=== PATIENT | female | born 2000 | race Caucasian/White ===

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

== ENCOUNTER 2020-12-09 15:12 | Emergency (ER) | payer OTHER, SELFPAY ==
--- NOTE | 2020-12-09 15:15 | ED.URI ---
HPI - URI/Sore Throat General Chief Complaint: Upper Respiratory Infection Stated Complaint: Sore Throat/Cough Time Seen by Provider: 12/09/20 15:16 Source: patient and RN notes reviewed History of Present Illness HPI Narrative: Patient is a 20-year-old female who presents the urgent care with complaints of sore throat, cough, bilateral ear drainage. Patient states that symptoms started 2 days ago. Denies of any fever, nausea, vomiting. Denies of any known exposure to Covid or strep. Patient has been using cough drops, throat numbing spray, and Mucinex. Patient has had a Covid vaccine. No other acute complaints. No acute distress noted. Patient read the plan of care. Some parts of this dictation were generated by voice recognition software and may contain typographical and/or grammatical inaccuracies. Related Data Home Medications Medication Instructions Recorded Confirmed levothyroxine 50 mcg PO DAILY 11/29/19 11/29/19 Allergies Allergy/AdvReac Type Severity Reaction Status Date / Time No Known Allergies Allergy Verified 12/09/20 15:25 Review of Systems Review of Systems: CONSTITUTIONAL: Denies fever, chills, or sweats. EYES: Denies visual changes, redness, or discharge. ENT: Denies rhinorrhea, congestion. Reports of sore throat and bilateral ear drainage CARDIOVASCULAR: Denies chest pain, palpitations, or edema. RESPIRATORY: Reports a mild nonproductive cough without dyspnea GASTROINTESTINAL: Denies abdominal pain, nausea, vomiting, or diarrhea. GENITOURINARY: Denies dysuria or hematuria. SKIN: Denies rash or itching. MUSCULOSKELETAL: Denies back pain, joint pain, or myalgia. NEUROLOGIC: Denies headache, numbness, or weakness. All other systems reviewed are negative, except as documented in HPI. [facility] Past Medical History Medical History (Updated 12/09/20 @ 15:48 by ARUNA Turner) Anxiety Depression History of gastrectomy Hypothyroidism Surgical History Surgical History (Updated 08/09/19 @ 11:24 by ARUNA Cardenas) History of cholecystectomy History of gastric surgery History of tonsillectomy Family History Family History (Updated 08/09/19 @ 11:00 by ARUNA Cardenas) Father Alive and well Mother Alive and well Social History Social History (Updated 08/09/19 @ 11:00 by SALAZAR Cardenas Smoking status: Never smoker Second hand tobacco smoke exposure: No Alcohol intake: never Substance use: never Gender identity (if verbalized by the patient): Female Comments At the time of my signature, I reviewed and agree with the nursing past medical, surgical, social, and family history. There is no relevant family history pertinent to the patient complaint. Exam Narrative: GENERAL: This is a well-nourished, well-developed patient, in no apparent distress. HEAD: normocephalic, atraumatic. EYES: PERRL. Sclera clear/white. Vision is grossly intact. EARS: External ears normal, auditory canals clear and without drainage, TMs normal without perforation. Hearing grossly intact. NOSE: External nose normal with no obvious nasal discharge, nares without redness, clear rhinorrhea. THROAT: Mucous membranes moist, mild erythema noted posterior oropharynx with moderate postnasal drainage NECK: Neck supple, non-tender without lymphadenopathy CARDIOVASCULAR: Regular rate and rhythm without murmurs, gallops, or rubs. RESPIRATORY: Clear to auscultation. Breath sounds equal bilaterally. No wheezes, rales, or rhonchi. SKIN: warm, intact with no suspicious lesions or rash, good texture and turgor. NEURO: awake, alert, and oriented to person, place and time. There were no obvious focal neurologic abnormalities. EXTREMITIES: No clubbing, cyanosis, or edema. Course Vital Signs Vital signs: Vital Signs Temperature 98.4 F 12/09/20 15:20 Pulse Rate 83 12/09/20 15:20 Respiratory Rate 16 12/09/20 15:20 Blood Pressure 148/88 H 12/09/20 15:20 Pulse Oximetry 100
[2020-12-09 15:20] VITALS: BP 148/88; PULSE 83; RESP 16; TEMP 36.9; O2SAT 100
== END 2020-12-09 15:52 | disposition home or self-care (01) ==
PROVIDERS: Emergency Provider Nurse Practitioner Family; PCP Internal Medicine
DX: J02.9 Acute pharyngitis, unspecified (principal); E03.9 Hypothyroidism, unspecified
CPT/HCPCS: 87081; 87880; 99213; G0463

== ENCOUNTER 2021-09-13 12:03 | Emergency (ER) | payer OTHER, SELFPAY ==
[2021-09-13 12:13] VITALS: BP 123/74; PULSE 82; RESP 16; TEMP 36.8; O2SAT 100
--- NOTE | 2021-09-13 12:25 | ED.SKABFB ---
HPI - Skin/Abscess/Foreign Bdy General Chief complaint: Skin/Abscess/Foreign Body Stated complaint: rash all over Time Seen by Provider: 09/13/21 12:25 Related Data Home Medications Medication Instructions Recorded Confirmed levothyroxine 50 mcg tablet 50 mcg PO DAILY 11/29/19 09/13/21 bupropion HCl 150 mg tablet,12 hr 150 mg PO DAILY 08/21/21 09/13/21 sustained-release (Wellbutrin SR) levonorgestrel 20 mcg/24 hours (7 1 device intrauterine ONCE 08/21/21 09/13/21 yrs) 52 mg intrauterine device (Mirena) Allergies Allergy/AdvReac Type Severity Reaction Status Date / Time fluoxetine [From Prozac] Allergy Severe Hives Verified 09/13/21 12:26 Review of Systems Review of Systems: Patient presents with hives to her back and both arms. Patient denies any change in lifestyle. No new pets no new foods. Patient has not take anything [id number] for symptoms denies any new added stress in her life. Patient denies any shortness of breath no chest pain Constitutional: Comments: CONSTITUTIONAL: Denies fever, chills, or sweats. EYES: Denies visual changes, redness, or discharge. ENT: Denies rhinorrhea, congestion, sore throat, or otalgia. CARDIOVASCULAR: Denies chest pain, palpitations, or edema. RESPIRATORY: Denies cough or dyspnea. GASTROINTESTINAL: Denies abdominal pain, nausea, vomiting, or diarrhea. GENITOURINARY: Denies dysuria or hematuria. SKIN: Denies rash or itching. MUSCULOSKELETAL: Denies back pain, joint pain, or myalgia. NEUROLOGIC: Denies headache, numbness, or weakness. PSYCHIATRIC: Denies anxiety or depression. [facility] Past Medical History Medical History (Updated 09/13/21 @ 12:32 by ARUNA Christensen) Anxiety Depression Encounter for IUD insertion 05/2020 History of gastrectomy Hypothyroidism Surgical History Surgical History History of cholecystectomy History of gastric surgery History of tonsillectomy Family History Family History Father Alive and well Mother Alive and well Social History Social History (Updated 08/21/21 @ 14:16 by Rebekah Thomas MA) Smoking status: Never smoker Second hand tobacco smoke exposure: No Alcohol intake: never Substance use: never Gender identity (if verbalized by the patient): Female Sexual Orientation (if Verbalized by the Patient): Straight or Heterosexual Comments At time of signature, agree with nursing past medical, surgical, social and family history. There is no relevant family history pertinent to the presenting complaint Exam Narrative: GENERAL: Well-appearing, well-nourished, and in no acute distress. HEAD: Normocephalic, atraumatic. EYES: PERRLA and EOMI. ENT: Nares clear, no rhinorrhea or epistaxis. Mucous membranes moist. NECK: Supple. CHEST: Clear to auscultation. No respiratory distress. HEART: Regular rate and rhythm. No murmur heard. Normal peripheral pulses. ABDOMEN: Soft, nontender, nondistended, normal active bowel sounds. EXTREMITIES: Normal range of motion. No edema. SKIN: Warm, dry, no rash. Hives to both upper extremities and back NEURO: No focal deficits. Alert and oriented x3. [place] Coma Scale Eye Opening: Spontaneous 4 [place] Coma Scale Motor: Obeys Commands 6 [place] Coma Scale Verbal: Oriented 5 Damari Coma Scale Total 15 Course Course Level of Care: Express Care Visit Vital Signs Vital signs: Vital Signs Temperature 36.8 C 09/13/21 12:13 Pulse Rate 82 09/13/21 12:13 Respiratory Rate 16 09/13/21 12:13 Blood Pressure 123/74 09/13/21 12:13 Pulse Oximetry 100 09/13/21 12:13 Oxygen Delivery Room Air 09/13/21 12:13 Temperature 36.8 C 09/13/21 12:13 Pulse Rate 82 09/13/21 12:13 Respiratory Rate 16 09/13/21 12:13 Blood Pressure 123/74 09/13/21 12:13 Pulse Oximetry 100 09/13/21 12:13 Oxygen Delivery Room Air 09/13/21 12:13 [facility] - [facility]
== END 2021-09-13 12:36 | disposition home or self-care (01) ==
PROVIDERS: Emergency Provider Nurse Practitioner Family; PCP Physician Assistant
DX: L50.9 Urticaria, unspecified (principal); E03.9 Hypothyroidism, unspecified; F41.9 Anxiety disorder, unspecified; F32.A Depression, unspecified
CPT/HCPCS: 99213; G0463

== ENCOUNTER 2021-10-26 08:08 | Emergency (ER) | payer OTHER, SELFPAY ==
[2021-10-26 08:12] VITALS: BP 114/70; PULSE 81; RESP 16; TEMP 36.4; O2SAT 100
--- NOTE | 2021-10-26 08:22 | ED.URI ---
HPI - URI/Sore Throat General Chief Complaint: Upper Respiratory Infection Stated Complaint: sinus infection ears and throat Time Seen by Provider: 10/26/21 08:22 Source: patient, RN notes reviewed and old records reviewed Mode of arrival: ambulatory Limitations: no limitations History of Present Illness HPI Narrative: 21 year old female who presents to [facility] care with complaints of cough, sore throat, ear pain, nasal congestion and drainage and body aches for the past 3 days. Patient reports she has been taking [id number] allergy medicine and cold and flu medications and has also been using Flonase with no improvements in her symptoms. Patient reports she has taken a home COVID test yesterday which was negative, patient reports has had COVID vaccinations and booster and also had flu shot last season. patient reports that she has not had fevers, chills or sweats. MD elicited complaint: cough, sore throat, rhinorrhea and nasal congestion Onset (ago): day(s) (3) Treatments prior to arrival: cold medicine and other (flonase, allergy medications) Related Data Home Medications Medication Instructions Recorded Confirmed levothyroxine 50 mcg tablet 50 mcg PO DAILY 11/29/19 10/26/21 bupropion HCl 150 mg tablet,12 hr 150 mg PO DAILY 08/21/21 10/26/21 sustained-release (Wellbutrin SR) levonorgestrel 20 mcg/24 hours (7 1 device intrauterine ONCE 08/21/21 10/26/21 yrs) 52 mg intrauterine device (Mirena) Allergies Allergy/AdvReac Type Severity Reaction Status Date / Time fluoxetine [From Prozac] Allergy Severe Hives Verified 10/26/21 08:23 Review of Systems Review of Systems: CONSTITUTIONAL: Denies fever, chills, or sweats. EYES: Denies visual changes, redness, or discharge. ENT: Positive for rhinorrhea, congestion, sore throat, positive otalgia. CARDIOVASCULAR: Denies chest pain, palpitations, or edema. RESPIRATORY: positive cough denies dyspnea. GASTROINTESTINAL: Denies abdominal pain, nausea, vomiting, or diarrhea. GENITOURINARY: Denies dysuria or hematuria. SKIN: Denies rash or itching. MUSCULOSKELETAL: Denies back pain, joint pain, states some body aches NEUROLOGIC: Denies headache, numbness, or weakness. PSYCHIATRIC: positive for history of anxiety or depression. All systems reviewed & are unremarkable except as noted in HPI and below PMFSH Past Medical History Medical History Anxiety Depression Encounter for IUD insertion 05/2020 History of gastrectomy Hypothyroidism Surgical History Surgical History History of cholecystectomy History of gastric surgery History of tonsillectomy Family History Family History Father Alive and well Mother Alive and well Social History Social History Smoking status: Never smoker Second hand tobacco smoke exposure: No Alcohol intake: never Substance use: never Gender identity (if verbalized by the patient): Female Sexual Orientation (if Verbalized by the Patient): Straight or Heterosexual Comments At time of signature, agree with nursing past medical, surgical, social and family history. There is no relevant family history pertinent to the presenting complaint Exam Narrative: GENERAL: Well-appearing, well-nourished, and in no acute distress. HEAD: Normocephalic, atraumatic. EYES: PERRLA and EOMI. ENT: Nares red with clear rhinorrhea no epistaxis. Mucous membranes moist.TM's normal with good light reflex, throat red no lesions or exudates, tonsils absent NECK: Supple.no lymphadenopathy CHEST: Clear to auscultation. No respiratory distress.SAO2 100% on room air HEART: Regular rate and rhythm. No murmur heard. Normal peripheral pulses. ABDOMEN: Soft, nontender, nondistended, normal active bowel sounds. EXTREMITIES: Normal range of m
== END 2021-10-26 08:50 | disposition home or self-care (01) ==
PROVIDERS: Emergency Provider Registered Nurse; PCP Physician Assistant
DX: J06.9 Acute upper respiratory infection, unspecified (principal); J02.9 Acute pharyngitis, unspecified; E03.9 Hypothyroidism, unspecified; F41.9 Anxiety disorder, unspecified; F32.A Depression, unspecified; Z90.3 Acquired absence of stomach [part of]
CPT/HCPCS: 87081; 87880; 99213; G0463

== ENCOUNTER 2022-05-03 09:15 | Emergency (ER) | payer OTHER, SELFPAY ==
[2022-05-03 09:24] VITALS: BP 122/73; PULSE 87; RESP 20; TEMP 36.5; O2SAT 100
--- NOTE | 2022-05-03 10:19 | ED.GENADULT ---
HPI - General Adult General Chief complaint: Upper Respiratory Infection Stated complaint: throat/ears/congestion Source: patient Mode of arrival: ambulatory Limitations: no limitations History of Present Illness HPI narrative: Patient presents for evaluation of sore throat since yesterday. She also reports a burning sensation in her ears and cervical lymphadenopathy. Her friend recently tested positive for strep pharyngitis. They were sharing drinks within the past few days. She had a low-grade fever with T-max 100.2? F. No chills, nausea, vomiting, diarrhea, cough, shortness of breath. She tried taking some [id number] agents for her symptoms without considerable improvement thereafter. She does not smoke. History of tonsillectomy. Related Data Home Medications Medication Instructions Recorded Confirmed levothyroxine 50 mcg tablet 50 mcg PO DAILY 11/29/19 05/03/22 bupropion HCl 150 mg tablet,12 hr 150 mg PO DAILY 08/21/21 05/03/22 sustained-release (Wellbutrin SR) levonorgestrel 21 mcg/24 hours (8 1 device intrauterine ONCE 08/21/21 05/03/22 yrs) 52 mg intrauterine device (Mirena) Allergies Allergy/AdvReac Type Severity Reaction Status Date / Time fluoxetine [From Prozac] Allergy Severe Hives Verified 05/03/22 09:50 Review of Systems Review of Systems: CONSTITUTIONAL: Reports fever. Denies chills, or sweats. EYES: Denies visual changes, redness, or discharge. ENT: Reports sore throat, cervical lymphadenopathy and bilateral ear pain. Denies rhinorrhea and congestion CARDIOVASCULAR: Denies chest pain, palpitations, or edema. RESPIRATORY: Denies cough or dyspnea. GASTROINTESTINAL: Denies abdominal pain, nausea, vomiting, or diarrhea. GENITOURINARY: Denies dysuria or hematuria. SKIN: Denies rash or itching. MUSCULOSKELETAL: Denies back pain, joint pain, or myalgia. NEUROLOGIC: Denies headache, numbness, dizziness, or weakness. PSYCHIATRIC: Denies anxiety or depression. [facility]LY [facility] Past Medical History Medical History Anxiety Depression Encounter for IUD insertion 05/2020 History of gastrectomy Hypothyroidism Surgical History Surgical History History of cholecystectomy History of gastric surgery History of tonsillectomy Family History Family History Father Alive and well Mother Alive and well Social History Social History Smoking status: Never smoker Second hand tobacco smoke exposure: No Alcohol intake: never Substance use: never Living arrangements: with family Occupation/Education: occupation Gender identity (if verbalized by the patient): Female Sexual Orientation (if Verbalized by the Patient): Straight or Heterosexual Exam Narrative: GENERAL: Well-appearing, well-nourished, and in no acute distress. HEAD: Normocephalic, atraumatic. EYES: PERRLA and EOMI. ENT: Nares clear, no rhinorrhea or epistaxis. Mucous membranes moist. Posterior pharyngeal erythema without exudate. Uvula is midline. Bilateral TMs pearly michel nonbulging NECK: Supple. No adenopathy or masses. No carotid bruits or JVD CHEST: Clear to auscultation. No respiratory distress. No wheezes rales or rhonchi HEART: Regular rate and rhythm. No murmur heard. Normal peripheral pulses. ABDOMEN: Soft, nontender, nondistended, normal active bowel sounds. EXTREMITIES: Normal range of motion. No edema. SKIN: Warm, dry, no rash. NEURO: No focal deficits. Alert and oriented x3. PSYCH: Normal mood and affect. Course Course Emergency Course: This is a 22-year-old female who presented for evaluation of sore throat after recent strep exposure. Rapid strep negative. Will treat with amoxicillin based on recent exposure. Follow up with primary provider. Go to the ER for
== END 2022-05-03 10:24 | disposition home or self-care (01) ==
PROVIDERS: Emergency Provider Nurse Practitioner; PCP Physician Assistant
DX: J02.9 Acute pharyngitis, unspecified (principal); F41.9 Anxiety disorder, unspecified; F32.A Depression, unspecified; E03.9 Hypothyroidism, unspecified
CPT/HCPCS: 87081; 87880; 99213; G0463

== ENCOUNTER 2022-07-24 10:40 | Emergency (ER) | payer OTHER, SELFPAY ==
--- NOTE | 2022-07-24 10:54 | ED.URI ---
HPI - URI/Sore Throat General Chief Complaint: Upper Respiratory Infection Stated Complaint: cough, hard time breathing,sore throat Time Seen by Provider: 07/24/22 10:50 Source: patient Mode of arrival: ambulatory Limitations: no limitations History of Present Illness HPI Narrative: Letitia is a 22-year-old female patient presenting to the clinic today with complaints of cough, shortness of breath, and sore throat times 1 day. She reports she has had low-grade fever and productive cough at times with yellow phlegm. No known exposure to anyone with COVID, flu, or strep. Feels as though her lymph nodes are swollen and she is having discomfort and bilateral ears. MD elicited complaint: sore throat, nasal congestion and other (Shortness of breath) Related Data Home Medications Medication Instructions Recorded Confirmed levothyroxine 50 mcg tablet 50 mcg PO DAILY 11/29/19 07/24/22 bupropion HCl 150 mg tablet,12 hr 150 mg PO DAILY 08/21/21 07/24/22 sustained-release (Wellbutrin SR) Allergies Allergy/AdvReac Type Severity Reaction Status Date / Time fluoxetine [From Prozac] Allergy Severe Hives Verified 07/24/22 10:59 Review of Systems Review of Systems: Pertinent positives per HPI. Patient denies any fever, chills, rash, headache, visual changes, dizziness, chest pain, palpitations, nausea, vomiting, diarrhea, constipation, abdominal pain, or any urinary issues. FOR[facility]LY [facility] Past Medical History Medical History Anxiety Depression Encounter for IUD insertion 05/2020 History of gastrectomy Hypothyroidism Surgical History Surgical History History of cholecystectomy History of gastric surgery History of tonsillectomy Family History Family History Father Alive and well Mother Alive and well Social History Social History Smoking status: Never smoker Second hand tobacco smoke exposure: No Alcohol intake: never Substance use: never Living arrangements: with family Occupation/Education: occupation Gender identity (if verbalized by the patient): Female Sexual Orientation (if Verbalized by the Patient): Straight or Heterosexual Comments At the time of my signature, I reviewed and agree with the nursing past medical, surgical, social, and family history. There is no relevant family history pertinent to the patient complaint. Exam Narrative: General: Well-developed, obese, in no apparent distress Head: Normocephalic, atraumatic Eyes: Pupils equally round and reactive to light bilaterally, EOM intact, sclera and conjunctive clear, no discharge, lids normal Ears: TMs intact and congested, ear canals clear, no drainage, grossly hearing normal. Nose: Nares patent, clear nasal discharge, moderate inflammation, no sinus tenderness. Mouth: Oral pharynx red without lesions or masses, good dentition, MMM. Neck: Supple, trachea midline, mild enlargement of anterior cervical nodes, no thyroid masses or goiter palpable. Cardio: Regular rate and rhythm, s1 and s2 normal, no murmur appreciated. Resp: Clear to auscultation bilaterally, no rhonchi, rales, wheezing or rubs Course Course Emergency Course: Portions of this record may have been created with voice recognition software. Level of Care: Express Care Visit Vital Signs Vital signs: Vital signs reviewed MDM - URI/Sore Throat MDM Narrative Medical decision making narrative: At the time of visit patient is resting comfortably on exam table. COVID, influenza, and strep screen is negative in the clinic. We will send strep for culture. I suspect patient has URI/pharyngitis. Supportive measures were discussed with the patient she voiced understanding discharge instructions and agrees to treatment pl
[2022-07-24 10:56] VITALS: BP 151/84; PULSE 86; RESP 16; TEMP 37.1; O2SAT 100
== END 2022-07-24 11:43 | disposition home or self-care (01) ==
PROVIDERS: Emergency Provider Nurse Practitioner Family; PCP Physician Assistant
DX: J06.9 Acute upper respiratory infection, unspecified (principal); B34.9 Viral infection, unspecified; J02.9 Acute pharyngitis, unspecified; Z20.822 Contact with and (suspected) exposure to COVID-19; F41.9 Anxiety disorder, unspecified; F32.A Depression, unspecified; E03.9 Hypothyroidism, unspecified
CPT/HCPCS: 87081; 87426; 87804; 87880; 99213; C9803; G0463

== ENCOUNTER 2023-12-06 16:20 | Emergency (ER) | payer OTHER, SELFPAY ==
[2023-12-06 16:59] VITALS: BP 122/58; PULSE 78; RESP 16; TEMP 36.9; O2SAT 99
--- NOTE | 2023-12-06 17:46 | ED_ITS ---
HPI - URI/Sore Throat General Chief Complaint: Upper Respiratory Infection Stated Complaint: Congestion/Sore Throat/Shortness of Breath Time Seen by Provider: 12/06/23 17:30 Source: patient, RN notes reviewed and old records reviewed Mode of arrival: ambulatory Limitations: no limitations History of Present Illness HPI Narrative: 23 year old female who presents to [facility] care with complaints of cough, some shortness of breath states hurts to breath, burning sore throat and also some pressure to ears for the last 2 days. Patient reports that she has taken some cough medication and also some cold and flu medication without resolution in symptoms.She reports no known temperature or any body aches. MD elicited complaint: cough, sore throat and other (ear pressure) Onset (ago): day(s) (2) Severity: moderate Able to tolerate fluids by mouth: Yes Treatments prior to arrival: other (cold and flu medication and cough medication) Related Data Allergies Allergy/AdvReac Type Severity Reaction Status Date / Time fluoxetine [From Prozac] Allergy Severe Hives Verified 07/24/22 10:59 Review of Systems Review of Systems: CONSTITUTIONAL: Reports malaise, denies chills, sweats, or fever. EYES: Denies visual changes, redness, or discharge. ENT: Reports rhinorrhea, congestion, sinus pain, bilateral ear pressure and burning sore throat CARDIOVASCULAR: Denies chest pain, palpitations, or edema. RESPIRATORY: Reports cough.? reports dyspnea and states hurts to breath . GASTROINTESTINAL: Denies abdominal pain, nausea, vomiting, diarrhea SKIN: Denies rash or itching. MUSCULOSKELETAL: Denies myalgia. NEUROLOGIC: Denies headache. All systems reviewed & are unremarkable except as noted in HPI and below PMFSH Past Medical History Medical History Anxiety Depression Encounter for IUD insertion 05/2020 History of gastrectomy Hypothyroidism Surgical History Surgical History History of cholecystectomy History of gastric surgery History of tonsillectomy Family History Family History Father Alive and well Mother Alive and well Social History Social History Smoking status: Never smoker Second hand tobacco smoke exposure: No Alcohol intake: never Substance use: never Living arrangements: with family Occupation/Education: occupation Gender identity (if verbalized by the patient): Female Sexual Orientation (if Verbalized by the Patient): Straight or Heterosexual Comments At time of signature, agree with nursing past medical, surgical, social and family history. There is no relevant family history pertinent to the presenting complaint Exam Narrative: GENERAL: Well-appearing, well-nourished, and in no acute distress. HEAD: Normocephalic EYES: PERRLA, conjunctivae clear ENT: Nares clear, turbinates edematous and erythematous, clear discharge. Mucous membranes moist.Left TM red, Right TM pearly michel with dull light reflex; no tragal tenderness. Oropharynx erythematous without lesions. Tonsils not present and throat without exudate, no drooling, no hoarseness, no trismus, uvula midline, post nasal draianage NECK: Supple. No lymphadenopathy CHEST: Clear to auscultation, breath sounds equal. No wheezing, rhonchi, rales, or stridor. No respiratory distress, speaks in full sentences.dry cough no tachypnea or retractions SAO2 99% on room air HEART: Regular rate and rhythm. No murmur heard. SKIN: Warm, dry, no rash. NEURO: Alert and oriented x3. PSYCH: Normal mood and affect Course Course Emergency Course: Patient is aware of diagnosis, understands and agrees to treatment plan.? Anticipatory guidance given.? Patient agrees to follow-up as directed and is aware of reasons to seek care at the emergency department. Portions of this record may have been created with voice recognition software Level of Care: Express Care Visit Vital Signs Vital signs: Vital Signs Temperature 36.9 C 12/06/23 16:59 Pulse Rate 78 12/06/23 16:59 Respiratory Rate 16 12/06/23 16:59 Blood Pressure 122/58 L 12/06/23 16:59 Pulse Oximetry 99 12/06/23 16:59 Oxygen Delivery Room Air 12/06/23 16:59 Temperature 36.9 C 12/06/23 16:59 Pulse Rate 78 12/06/23 16:59 Respiratory Rate 16 12/06/23 16:59 Blood Pressure 122/58 L 10/28/24 16:59 Pulse Oximetry 99 12/06/23 16:59 Oxygen Delivery Room Air 12/06/23 16:59 Reviewed MDM - URI/Sore Throat MDM Narrative Medical decision making narrative: Differential diagnosis considered: Bunn virus, strep pharyngitis, allergic rhinitis, upper respiratory tract infection, sinusitis, rhinosinusitis, nasopharyngitis. viral pharyngitis, otitis media, otitis externa, pneumonia, bronchitis, viral cough syndrome, viral syndrome, and influenza.? Exam findings show no acute concerns or changes; patient is non-toxic appearing and is in no distress.? Patient is appropriate for outpatient treatment and follow-up. Differential Diagnosis Differential diagnosis: Likely upper respiratory infection, otitis media and other (cough) Medical Records Attestation: I reviewed the patient's medical records. Lab Data Attestation: I reviewed the patient's lab results. Lab results narrative: strep screen negative, culture sent Labs: Lab Results 12/06/23 Range/Units 17:44 POC Grp A Strep Screen Negative (Negative) Critical Care Time Critical Care Time Critical Care Time: No Discharge Plan Discharge Clinical Impression: Otitis media, Cough in adult Patient Disposition: Home, Self-Care Condition: Stable Instructions: Antibiotic Form, Ear Infection (GEN), Acute Cough (ED) Additional Instructions: Increase fluids especially juices and water [id number] cough and cold medicine of your choice for your symptoms Prescription cough medicine as directed--caution drowsiness and no driving or alcohol Zyrtec Claritin or Shahana daily Tylenol or ibuprofen for any fever pain Steroids as directed--take with food heat to the face 20-30 minutes 4-6 times a day for pain Salt water gargles, throat lozenges or throat sprays as desired Antibiotic as directed--finished the medication Prescriptions: New azithromycin 250 mg tablet See Rx Instructions .ROUTE .COMPLEX Qty: 6 0RF Rx Instructions: For 250 mg dose pack: take 500 mg today (day 1), then 250 mg for 4 days (days 2-5) prednisone 20 mg tablet 20 mg PO BID Qty: 10 0RF Follow-up/Referrals: Clayton,ARSH Ledbetter [Primary Care Provider] - Stand Alone Forms: Work/School Release IP Time of Disposition: 18:02 Quality [employer] Coma Scale Eyes: Open Verbal: Oriented and Alert Motor: Follows Commands Damari Coma Total Score: 15
[2023-12-06 18:03] LABS: EDSTREPNEGPOS1 Negative (Negative)
== END 2023-12-06 18:07 | disposition home or self-care (01) ==
PROVIDERS: Emergency Provider Registered Nurse; PCP Physician Assistant
DX: H65.02 Acute serous otitis media, left ear (principal); R05.9 Cough, unspecified; E03.9 Hypothyroidism, unspecified
CPT/HCPCS: 87081; 87880; 99213; G0463

== ENCOUNTER 2024-03-18 08:02 | Emergency (ER) | payer OTHER, SELFPAY ==
--- OUTSIDE RECORDS SUMMARY | 2024-03-18 08:06 | XMS_ITS | Clinical Summary ---
Author Organization [facility] Address [address] [place] [address] Phone Care Team Providers Care Funds Transfer Clerk Name Role Phone Bhargav Arnold Primary Care Provider [phone] Allergies No known active allergies Medications levothyroxine (Synthroid) 25 MCG Tablet Take 25 mcg by mouth daily. Active ondansetron (ZOFRAN) 4 MG Tablet Take 1 Tablet by mouth every 8 hours as needed for Nausea - 1st line. 20 Tablet 10/31/2023 Active Social History Tobacco Use Types Packs/Day Years Used Date Smoking Tobacco: Never Smokeless Tobacco: Never Tobacco Cessation:Counseling Given: Not Answered Alcohol Use Standard Drinks/Week Comments Yes 0 (1 standard drink = 0.6 oz pur e alcohol) on occassion Comments Unknown Sex and Gender Information Value Date Recorded Sex Assigned at Not on file Legal Sex Female 11:01 PM CDT Gender Identity Not on file Sexual Orientation Not on file Last Filed Vital Signs Vital Sign Reading Time Taken Comments Blood Pressure 122/63 10/31/2023 4:30 PM CDT Pulse 67 10/31/2023 4:30 PM CDT Temperature 36.1 C (97 F) 10/31/2023 1:46 PM CDT Respiratory Rate 16 10/31/2023 4:15 PM CDT Oxygen Saturation 100% 10/31/2023 4:30 PM CDT Inhaled Oxygen Concentration - - Weight 104.3 kg (230 lb) 10/31/2023 11:25 AM CDT Height 172.7 cm (5' 8 ) 10/31/2023 11:25 AM CDT Body Mass Index 34.97 10/31/2023 11:25 AM CDT Plan of Treatment Health Maintenance Due Date Last Done Comments Hepatitis C Virus (HCV) Screening 2000 TdaP Immunization 2000 Human Papillomavirus (HPV) Immunization (1 - 3-dose series) 01/31/2015 Meningococcal B Immunization (1 of 2 - Standard) 2016 Hepatitis B Immunization (1 of 3 - 19+ 3-dose series) 01/31/2019 Pap Smear 01/31/2021 Influenza Immunization (#1) 2023 SARS-COV-2 Immunization (2023- season) 2023 02/22/2021, 08/05/2020, 07/15/2020 Respiratory Syncytial Virus (RSV) Immunization (Adult) (1 - 1-dose 75+ series) 01/31/2075 Meningococcal Immunization (ACWY) Aged Out No longer eligible b ased on patient's age to complete this topic Pneumococcal Immunization Combined Aged Out No longer eligible b ased on patient's age to complete this topic Rotavirus Immunization Aged Out No lo nger eligible based on patient's age to complete this topic Insurance Care Teams Funds Transfer Clerk Relationship Specialty Start Date End Date Bhargav Arnold PAC [address] [place] [address] PCP - General Physician 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
--- OUTSIDE RECORDS SUMMARY | 2024-03-18 08:06 | XMS_ITS | Patient Health Summary ---
Author Organization [facility] Address [address] [address] Care Team Providers Care Student Finance Specialist Name Role Phone Reagan Gonsalez MD Primary Care Provider [phone] Note from [facility],non-owned Affiliates and Associated Physician Practices is amultiple site organization consisting of ambulatory clinics and hospital sitesin [place], [place], [place] and [place]. This disclosure is being madepursuant to the Care Everywhere program and may not contain all information available regarding this patient. Last updated 17.[facility] Allergies * Food(Rash,Other) -Medium Criticality Medications * Be aware that medications may not be up to date on this document. Alwaysverify current medications with the patient. * TRINESSA, 28, tablet(Started 10/10/2016) TK 1 T PO QD 3 refills left * multivitamin daily (THERAGRAN) tablet Take 1 tablet by mouth daily with food * levothyroxine (SYNTHROID) 75 MCG tablet(Started 08/18/2017) Take 1 tablet by mouth daily before breakfast 5 refills remaining * ondansetron, disintegrating, (ZOFRAN ODT) 8 MG tablet(Started 02/24/2018) Take 1 tablet by mouth every 4 hours as needed Allow tablet to dissolve on the tongue Reasons: Nausea and Vomiting * famotidine (PEPCID) 20 MG tablet(Started 02/24/2018) Take 1 tablet by mouth 2 times daily 5 refills remaining Active Problems Problem Noted Date Diagnosed Date 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 Cholecystitis 12/21/2016 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 Sleep disorder breathing Social History Tobacco Use Types Packs/Day Years Used Date Smoking Tobacco: Passive Smo ke Exposure - Never Smoker Smokeless Tobacco: Never Alcohol Use Standard Drinks/Week Comments No 0 (1 standard drink = 0.6 oz pur e alcohol) Sex and Gender Information Value Date Recorded Sex Assigned at Not on file Gender Identity Not on file Sexual Orientation Not on file Last Filed Vital Signs Vital Sign Reading Time Taken Comments Blood Pressure 121/70 02/24/2018 11:36 AM [facility] Pulse 58 02/24/2018 11:36 AM [employer] [facility]AN Temperature 36 C (96.8 F) 02/24/2018 11:36 AM [facility] [employer]AN Respiratory Rate 22 02/24/2018 11:3 6 AM [facility] [employer]AN Oxygen Saturation 95% 02/24/2018 11: 36 AM [employer] [facility]AN Inhaled Oxygen Concentration - - Weight 122.1 kg (269 lb 2.9 oz) 04/26/2018 8:00 AM CDT Height 175 cm (5' 8.9 ) 04/26/2018 8:00 AM CDT Body Mass Index 39.87 04/26/2018 8:00 AM CDT Procedures * FL UGI SERIES(Performed 02/22/2018) Performed for S/P laparoscopic sleeve gastrectomy * CBC W/O DIFFERENTIAL(Performed 02/21/2018) * ESOPHAGOSCOPY (PEDIATRIC)(Performed 02/21/2018) Performed for Morbid obesity (HCC) * LAPAROSCOPIC GASTRECTOMY (LONGITUDINAL/SLEEVE)(Performed 02/21/2018) Performed for Morbid obesity (HCC) * HCG URINE QUALITATIVE - POCT (IP) INTERFACED(Performed 02/21/2018) * HCG URINE QUAL POCT NOTIFICATION(Performed 02/21/2018) * TSH(Performed 08/18/2017) Performed for Autoimmune thyroiditis * T4 TOTAL(Performed 08/18/2017) Performed for Autoimmune thyroiditis * ANTI-MULLERIAN HORMONE(Performed 08/09/2017) Performed for Class 3 severe obesity due to excess calories with serious comorbidity and body mass index (BMI) of 45.0 to 49.9 in adult ([facility]) * DHEA SULFATE(Performed 08/09/2017) Performed for Class 3 severe obesity due to excess calories with serious comorbidity and body mass index (BMI) of 45.0 to 49.9 in adult ([facility]) * ESTRADIOL(Performed 08/09/2017) Performed for Class 3 severe obesity due to excess calories with serious comorbidity and body mass index (BMI) of 45.0 to 49.9 in adult ([facility]) * TESTOSTERONE TOTAL FEM/CHLD HYPOGNDL MALE(Performed 08/09/2017) Performed for Class 3 severe obesity due to excess calories with serious comorbidity and body mass index (BMI) of 45.0 to 49.9 in adult ([facility]) * CHLAMYDIA + GC AMPLIFIED PROBE(Performed 08/09/2017) * PATHOLOGY TISSUE EXAM (STL)(Performed 08/03/2017) Performed for Pain, abdominal, generalized * ESOPHAGOGASTRODUODENOSCOPY (EGD) BIOPSY(Performed 08/03/2017) Performed for Pain, abdominal, generalized * EGD(Performed 08/03/2017) * EGD(Performed 08/03/2017) Performed for Gastritis without bleeding, unspecified chronicity, unspecified gastritis type, Esophageal erosions * HCG URINE QUAL POCT NOTIFICATION(Performed 08/03/2017) Performed for Preop examination * PEDIATRIC DIAGNOSTIC POLYSOMNOGRAM(Performed 08/02/2017) Performed for Snoring * EKG 15-LEAD(Performed 07/07/2017) Performed for Class 3 severe obesity due to excess calories without serious comorbidity with body mass index (BMI) greater than or equal to 70 in adult ([facility]) * ECHO CONSULT - PEDIATRIC(Performed 07/07/2017) Performed for Class 3 severe obesity due to excess calories without serious comorbidity with body mass index (BMI) of 45.0 to 49.9 in adult ([facility]) * XR CHEST 2VW(Performed 07/07/2017) Performed for Class 3 severe obesity due to excess calories with serious comorbidity and body mass index (BMI) of 45.0 to 49.9 in adult ([facility]) * XR BONE AGE STUDY(Performed 06/09/2017) Performed for Class 3 severe obesity due to excess calories without serious comorbidity with body mass index (BMI) of 45.0 to 49.9 in adult ([facility]) * TYPE + SCREEN PANEL(Performed 06/09/2017) Performed for Class 3 severe obesity due to excess calories without serious comorbidity with body mass index (BMI) of 45.0 to 49.9 in adult ([facility]) * HEMOGLOBIN A1C(Performed 06/09/2017) Performed for Class 3 severe obesity due to excess calories without serious comorbidity with body mass index (BMI) of 45.0 to 49.9 in adult (HCC) * VITAMIN D 25-HYDROXY(Performed 06/09/2017) Performed for Class 3 severe obesity due to excess calories without serious comorbidity with body mass index (BMI) of 45.0 to 49.9 in adult (HCC) * LIPID PROFILE(Performed 06/09/2017) Performed for Class 3 severe obesity due to excess calories without serious comorbidity with body mass index (BMI) of 45.0 to 49.9 in adult (HCC) * HEPATIC FUNCTION PANEL(Performed 06/09/2017) Performed for Class 3 severe obesity due to excess calories without serious comorbidity with body mass index (BMI) of 45.0 to 49.9 in adult (HCC) * CBC W AUTO DIFFERENTIAL(Performed 06/09/2017) Performed for Class 3 severe obesity due to excess calories without serious comorbidity with body mass index (BMI) of 45.0 to 49.9 in adult (HCC) * PATHOLOGY TISSUE EXAM (STL)(Performed 04/13/2017) Performed for Abdominal pain, unspecified abdominal location * HELICOBACTER PYLORI UREASE (STL)(Performed 04/13/2017) Performed for Epigastric pain * ESOPHAGOGASTRODUODENOSCOPY (EGD) BIOPSY(Performed 04/13/2017) Performed for Abdominal pain, unspecified abdominal location * HCG URINE QUALITATIVE - POCT (IP) BEAKER(Performed 04/13/2017) * EGD(Performed 04/13/2017) Performed for Epigastric pain * IGA BLOOD(Performed 03/17/2017) Performed for Epigastric pain * TISSUE TRANSGLUTAMINASE AB IGA(Performed 03/17/2017) Performed for Epigastric pain * CBC W AUTO DIFFERENTIAL(Performed 03/17/2017) Performed for Epigastric pain * AMYLASE BLOOD(Performed 03/17/2017) Performed for Epigastric pain * LIPASE BLOOD(Performed 03/17/2017) Performed for Epigastric pain * GGT(Performed 03/17/2017) Performed for Epigastric pain * HEPATIC FUNCTION PANEL(Performed 03/17/2017) Performed for Epigastric pain * T4 TOTAL(Performed 03/04/2017) Performed for Acquired autoimmune hypothyroidism * TSH(Performed 03/04/2017) Performed for Acquired autoimmune hypothyroidism * LAB RESULTS ORDER(Performed 12/25/2016) * PATHOLOGY TISSUE EXAM (STL)(Performed 12/22/2016) Performed for Cholecystitis, acute * LAPAROSCOPIC CHOLECYSTECTOMY(Performed 12/22/2016) * HCG URINE QUALITATIVE(Performed 12/21/2016) * PHOSPHORUS BLOOD(Performed 12/21/2016) * MAGNESIUM BLOOD(Performed 12/21/2016) * COMPREHENSIVE METABOLIC PANEL(Performed 12/21/2016) * CBC W AUTO DIFFERENTIAL(Performed 12/21/2016) * LAB RESULTS ORDER(Performed 06/09/2016) * TSH(Performed 10/04/2014) * T4 TOTAL(Performed 10/04/2014) * BASIC METABOLIC PANEL (CALCIUM TOTAL)(Performed 10/04/2014) * ALT(Performed 10/04/2014) * AST BLOOD(Performed 10/04/2014) * LIPID PROFILE(Performed 10/04/2014) * HEPATIC FUNCTION PANEL(Performed 08/02/2012) * CHOLESTEROL BLOOD(Performed 07/17/2010) Performed for Unspecified hypothyroidism * THYROID AB PANEL (TPO AB+THYROGLOB AB)(Performed 07/17/2010) Performed for Unspecified hypothyroidism * TSH(Performed 07/17/2010) Performed for Unspecified hypothyroidism * T4 TOTAL(Performed 07/17/2010) Performed for Unspecified hypothyroidism Results * FL UGI SERIES (02/22/2018 11:24 AM [facility] [employer] [facility]) Anatomical Region Laterality Modality Abdomen Radio Fluoroscop y 02/22/2018 11:4 8 AM [employer] [facility] Impressions 02/22/2018 12:10 PM [employer] [facility] Postoperative changes of sleeve gastrectomy without evidence of extraluminal contrast or gastric outlet obstruction. However, there is delayed passage of contrast into the residual stomach from the esophagus with abnormal esophageal motility. I, Citlaly Moreno, have personally reviewed the images and I agree with this report. Reading Radiologist: Citlaly Moreno MD on 02/22/2018 at 12:10 PM Narrative 02/22/2018 12:10 PM [facility] [employer] EXAMINATION: Upper gastrointestinal examination. History: 18-year-old with history of gastric sleeve postop day 1 Comparison: Correlation is made with MRI abdomen dated December 20, 2016. Fluoroscopy Time: 1.0 minutes Dose Area Prod: 1176.89 (uGy*m^2) Entrance Dose: 41.10 (mGy) Initial fluoroscopic kerfer machine operator images of the upper abdomen demonstrate a normal bowel gas pattern. There is mild bibasilar atelectasis. Right upper quadrant cholecystectomy clips are present. The patient drank water-soluble contrast. The mid to distal thoracic esophagus is normal in size in caliber. There is abnormal esophageal motility with to and fro motion. There was normal passage of contrast through the gastroesophageal junction. However, there is delayed contrast passage into the residual stomach in this patient status post sleeve gastrectomy. Minimal amounts of contrast passed into the residual stomach after 10 minutes. Contrast passed into the duodenum without delay. Contrast cleared from the distal esophagus after 10 minutes. There is no evidence of extraluminal contrast. Procedure Note Citlaly Moreno MD - 02/22/2018 EXAMINATION: Upper gastrointestinal examination. History: 18-year-old with history of gastric sleeve postop day 1 Comparison: Correlation is made with MRI abdomen dated December 20, 2016. Fluoroscopy Time: 1.0 minutes Dose Area Prod: 1176.89 (uGy*m^2) Entrance Dose: 41.10 (mGy) Initial fluoroscopic kerfer machine operator images of the upper abdomen demonstrate a normal bowel gas pattern. There is mild bibasilar atelectasis. Right upper quadrant cholecystectomy clips are present. The patient drank water-soluble contrast. The mid to distal thoracic esophagus is normal in size in caliber. There is abnormal esophageal motility with to and fro motion. There was normal passage of contrast through the gastroesophageal junction. However, there is delayed contrast passage into the residual stomach in this patient status post sleeve gastrectomy. Minimal amounts of contrast passed into the residual stomach after 10 minutes. Contrast passed into the duodenum without delay. Contrast cleared from the distal esophagus after 10 minutes. There is no evidence of extraluminal contrast. IMPRESSION Postoperative changes of sleeve gastrectomy without evidence of extraluminal contrast or gastric outlet obstruction. However, there is delayed passage of contrast into the residual stomach from the esophagus with abnormal esophageal motility. I, Citlaly Moreno, have personally reviewed the images and I agree with this report. Reading Radiologist: Citlaly Moreno MD on 02/22/2018 at 12:10 PM Axel Zaidi MD FLUOROSCOPY ORDERABL ES * (ABNORMAL) CBC W/O DIFFERENTIAL (02/21/2018 5:46 PM [facility] [employer] [facility]) WBC 7.5 4.5 - 11.0 x10E9/L 02/21/2018 6:02 PM [facility] [employer]IES DEAN [facility] RBC 4.32 4.10 - 5.10 x10E12/L 02/21/2018 6:02 PM [facility] Hemoglobin 11.4(L) 12.0 - 16.0 gm/dL 02/21/2018 6:02 PM [facility] Hematocrit 35.9(L) 36.0 - 47.0 % 02/21/2018 6:02 PM [facility] MCV 83.1 78.0 - 98.0 fl 02/21/2018 6:02 PM [facility] MCH 26.4 25.0 - 35.0 pg 02/21/2018 6:02 PM [facility] MCHC 31.8 31.0 - 37.0 gm/dL 02/21/2018 6:02 PM [facility] Platelet Count 324 100 - 400 x10E9/L 02/21/2018 6:02 PM [facility] RDW-CV 13.9 11.5 - 14.0 % 02/21/2018 6:02 PM [facility] MPV 9.6(H) 6.0 - 9.5 fl 02/21/2018 6:02 PM [facility] Blood BLOOD SPECIMEN / Unknown Lab Venipuncture / Unknown 02/21/2018 5:46 PM [facility] [employer] 02/21/2018 5:56 PM [facility] [employer]AN Axel Zaidi MD LAB - HEMATOLOGY ORD ERABLES Performing Organization Address City/[facility]/ZIP Co de Phone Number [facility] [address] [place] [address] * HCG URINE QUALITATIVE - POCT (IP) INTERFACED (02/21/2018 6:53 AM [facility] [employer] [facility]) Only the most recent of2 resultswithin the time period is included. HCG Qual Urine Negative Negative 02/21/2018 6:56 AM [facility] Urine URINE / Unknown 02/21/2018 6 :53 AM [facility] [employer]AN 02/21/2018 6:56 AM [employer] [facility]AN Jorge Mclean MD LAB - POINT OF CA RE ORDERABLES [facility] [address] [place] [address] * HCG URINE QUAL POCT NOTIFICATION (02/21/2018 6:31 AM [facility] [employer] [facility]) Only the most recent of2 resultswithin the time period is included. Comment Notification Label Only - See Separate Report 02/21/2018 8:00 AM [facility] [employer]AN [facility] Urine URINE / Unknown 02/21/2018 6 :31 AM [employer] [facility]AN 02/21/2018 6:31 AM [employer] [facility]AN Jorge Mclean MD LAB - URINALYSIS ORDERABLES Performing Organization Address [facility]/ZIP Co de Phone Number [facility] [place] [address] * (ABNORMAL) TSH (08/18/2017 9:57 AM CDT) Only the most recent of4 resultswithin the time period is included. Pathologist [facility] TSH 12.50(H) 0.35 - 4.95 uIU/mL 08/18/2017 11:34 AM CDT [facility] Blood BLOOD SPECIMEN / Unknown Lab Venipuncture / Unknown 08/18/2017 9:57 AM CDT 08/18/2017 10:37 AM CDT Michael Melara MD LAB - CHEMISTRY RAFAEL ALICIA Performing Organization Address [facility] Co de Phone Number [facility] [address] [place] [address] * T4 TOTAL (08/18/2017 9:57 AM CDT) Only the most recent of4 resultswithin the time period is included. T4 Total 7.20 4.87 - 11.7 ug/dL 08/18/2017 11:47 AM CDT [facility] Blood BLOOD SPECIMEN / Unknown Lab Venipuncture / Unknown 08/18/2017 9:57 AM CDT 08/18/2017 10:35 AM CDT Michael Melara MD LAB - CHEMISTRY RAFAEL ALICIA [facility] [place] [address] * ANTI-MULLERIAN HORMONE (08/09/2017 12:23 PM CDT) Anti-Mullerian Hormone 1.72 ng/mL 08/14/2017 3:36 AM CDT [facility] ([facility]) Comment: For assays employing antibodies, the possibility exists for interference by heterophile antibodies in the samples.1 1. Antoine Murdock Interferences in Immunoassays - still a threat. Clin. Chem. 2000; 46: 4941-3842. Reference Range: Females 7 - 19y: 1.05 - 12.86 Median 5.23 Circulating AMH levels change during pubertal development: male levels decrease female levels increase with sexual development. Females at risk of polycystic ovarian syndrome (PCOS) may exhibit elevated serum AMH concentrations. AMH levels from PCOS patients may be 2 to 5 fold higher than age-appropriate reference interval values. Granulosa cell tumors of the ovary may secrete AMH along with other tumor markers. Elevated AMH is not specific for malignancy, and the assay should not be used exclusively to diagnose or exclude an AMH-secreting ovarian tumor. Blood BLOOD SPECIMEN / Unknown Lab Venipuncture / Unknown 08/09/2017 12:23 PM CDT 08/09/2017 1:03 PM CDT Narrative [facility] ([facility]) - 08/14/2017 3:36 AM CDT Performed at: [facility] [address] [place] [id number] Project Construction Assistant Manager: Nghia Campa MD, Phone: [phone] Tiana Villafana MD LAB - CHEMISTRY RAFAEL ALICIA [facility] ([facility]) [address] [place] [address] * DHEA SULFATE (08/09/2017 12:23 PM CDT) Dehydroepiandrosterone Sulfate (DHEAS) 311.1 110.0 - 433.2 ug/dL 08/10/2017 7:16 AM CDT [facility] ([facility]) Blood BLOOD SPECIMEN / Unknown Lab Venipuncture / Unknown 08/09/2017 12:23 PM CDT 08/09/2017 1:04 PM CDT Narrative [facility] ([facility]) - 08/10/2017 7:16 AM CDT Performed at: [facility] [address] [place], [place] [id number] Project Construction Assistant Manager: Matthew Mcmullen PhD, Phone: [phone] Tiana Villafana MD LAB - CHEMISTRY RAFAEL ALICIA Performing Organization Address City/[facility] Co de Phone Number [facility] ([facility]) [address] [place] [address] * ESTRADIOL (08/09/2017 12:23 PM CDT) Estradiol 78.82 pg/mL 08/09/2017 3:41 PM CDT [facility] Blood BLOOD SPECIMEN / Unknown Lab Venipuncture / Unknown 08/09/2017 12:23 PM CDT 08/09/2017 1:04 PM CDT Narrative [facility] - 08/09/2017 3:41 PM CDT Menstruating Females Day in cycle relative to LH peak: Follicular Phase(-12 to -4) 18.9 - 246.7 pg/mL Midcycle (-3 to +2) 35.5 - 570.8 pg/mL Luteal Phase (+4 to +12) 22.4 - 256.0 pg/mL Postmenopausal ND* - 44.5 pg/mL Males 11.6 - 41.2 pg/mL * ND = not detectable Tiana Villafana MD LAB - CHEMISTRY RAFAEL ALICIA Performing Organization Address City/[facility]/ZIP Co de Phone Number [facility] [address] [place] [address] * TESTOSTERONE TOTAL FEM/CHLD HYPOGNDL MALE (08/09/2017 12:23 PM CDT) Testosterone Total LC-MS 34.5 ng/dL 08/12/2017 5:11 PM CDT [facility] ([facility]) Comment: Ebenezer Stage Age (years) Female 1 <9.2 <2.5 - 10.0 2 9.2 - 13.7 7.0 - 28.0 3 10.0 - 14.4 15.0 - 35.0 4 10.7 - 15.6 13.0 - 32.0 5 11.8 - 18.6 20.0 - 38.0 Adult Females = or >18 10.0 - 55.0 This test was developed and its performance characteristics determined by [facility]. It has not been cleared or approved by the Food and Drug Administration. Blood BLOOD SPECIMEN / Unknown Lab Venipuncture / Unknown 08/09/2017 12:23 PM CDT 08/09/2017 1:04 PM CDT Narrative [facility] ([facility]) - 08/12/2017 5:11 PM CDT Performed at: [address] [place] [id number] Project Construction Assistant Manager: Carlton Molina MD, Phone: [phone] Tiana Villafana MD LAB - CHEMISTRY RAFAEL ALICIA Performing Organization Address City/State/[facility] Co de Phone Number [facility] [address] [place] [address] * CHLAMYDIA + GC AMPLIFIED PROBE (08/09/2017 12:10 PM CDT) [facility] Chlamydia Amplified Probe Negative Negative 08/10/2017 11:40 AM CDT [facility] GC Amplified Probe Negative Negative 08/10/2017 11:40 AM CDT [facility] Urine URINE / Unknown Collection / Unknown 08/09/2017 12:10 PM CDT 08/09/2017 12:33 PM CDT Narrative [facility] - 08/10/2017 11:40 AM CDT This test was developed and its performance characteristics determined by the [facility], [facility]. Female urine specimens tested by the [facility] have not been cleared or approved by the U.S. Food and Drug Administration (FDA). The laboratory is regulated under the Clinical Laboratory Improvement Amendments (CLIA) as qualified to perform high-complexity testing. This test is used for clinical purposes. It should not be regarded as investigational or for research. Results based on detection/no detection of ribosomal RNA by amplified method. Tiana Villafana MD LAB - MICROBIOLOGY O RDERABLES [facility] [address] [place] [address], [facility] [phone] * GROSS + MICRO EXAM (STL) (08/03/2017 7:37 AM CDT) Only the most recent of3 resultswithin the time period is included. Case Report Surgical Pathology Report Case: [id number] Authorizing Provider: Jorge Mclean MD Collected: 08/03/2017 07:37 AM Ordering Location: ENDOSCOPY SERVICES Received: 08/03/2017 09:34 AM Pathologist: Keyur Alba MD Specimen: Stomach Biopsy 08/06/2017 4:43 PM T [facility] Addendum 1 Immunohistochemical stain for H. Pylori is negative. Controls are appropriate. 08/06/2017 4:43 PM [facility] Addendum electronically signed by Keyur Alba MD on 08/06/2017 at 4:43 PM Final Diagnosis A. STOMACH, BIOPSY: -NO SIGNIFICANT HISTOPATHOLOGICAL CHANGES IMMUNOHISTOCHEMICAL STAIN FOR H. PYLORI IS PENDING AND WILL BE REPORTED IN AN ADDENDUM 08/06/2017 4:43 PM [facility] Clinical History The patient is a 17-year-old girl with a history of gastritis who underwent gastric biopsy 08/06/2017 4:43 PM T [facility] Gross Description Submitted fixed in formalin in one container for gross and microscopic examination labeled with the patient's name, Tulio Pimentel, and stomach biopsy, are two 7 mm soft, yellow-enriquez tissue fragments submitted in toto as A1. (CT/arm) 08/06/2017 4:43 PM T [facility] Microscopic Description 3 H&E Sections show oxyntic and antral type gastric mucosa with no significant histopathological changes. 08/06/2017 4:43 PM [facility] Disclaimer The performance characteristics of all immunohistochemical and indirect immunofluorescence stains (if any) cited in this report were determined by the Histopathology Laboratory of [facility]. Some of these tests were developed by our own laboratory and have not been cleared or approved by the US Food and Drug Administration (FDA). The FDA does not require this test to go through premarket FDA review. These tests are used for clinical purposes. They should not be regarded as investigational or for research. This laboratory is certified under the Clinical Laboratory Improvement Amendments (CLIA) as qualified to perform high complexity clinical laboratory testing. This case has been personally reviewed and interpreted by the attending (teaching) pathologist. 08/06/2017 4:43 PM CDT [facility] Embedded Images 08/06/2017 4:43 PM CDT [facility] Pathology/Cytolo gy BIOPSY OF STOMACH / Unknown 08/03/2017 7:37 AM CDT 08/03/2017 9:34 AM CDT Jorge Mclean MD LAB - PATHOLOGY/C YTOLOGY ORDERABLES [facility] [place] [address] * PEDIATRIC DIAGNOSTIC POLYSOMNOGRAM (08/02/2017) Linked Results See Linked Results SLEEP CENTER 08/02/2017 Kervin Wade APRN-[facility] O RDERABLES SLEEP CENTER * EKG 15-LEAD (07/07/2017 1:56 PM CDT) Ventricular Rate 68 BPM CG MUSE Atrial Rate 68 BPM CG MUSE P-R Interval 166 ms CG MUSE QRS Duration ms 100 ms CG MUSE Q-T Interval ms 406 ms CG MUSE QTC Calculation (Bezet) 431 ms CG MUSE Calculated P Larose 42 degrees CG MUSE Calculated R Larose 47 degrees CG MUSE Calculated T Larose 54 degrees CG MUSE Interpretation EKG Normal sinus rhythm Normal ECG No previous ECGs available Confirmed by MD DAINA, MIGUEL ANGEL ([id number]) on 07/07/2017 4:25:32 PM CG MUSE 07/07/2017 1:56 PM CDT 07/07/2017 4:25 PM CDT Lesvia Mendoza WIRE COILER MACHINE OPERATOR-FINANCIAL AGENT ECG ORDERABLES CG MUSE * ECHO CONSULT - PEDIATRIC (07/07/2017 1:24 PM CDT) 07/07/2017 1:24 PM CDT Narrative Procedure Note Miguel Angel Grissom MD - 07/07/2017 [facility] [place] [address] Fax Non-Congenital Transthoracic Report Pat.Name: TULIO PIMENTEL Pat.ID: [id number] .Date: 07/07/2017 Exam Time: 1:24:00 PM Study Type:Non-Congenital TTE Height: 174cm Weight: 143.2kg BSA: 2.49 m2 Age: 12 2000,17Y Sex: FEMALE Sonogrphr: Catherine Bell RDCS Pat. Stat.:Outpatient CPT - 4: 49972 Reason for Study:pre bariatric surgery assessment History / Clinical:preop bariatric surgery Procedures:2D Non-congenital, Doppler Complete, Color Flow Visit ID: [id number] SUMMARY: Limited ECHO secondary to limited windows. Normal intracardiac anatomy and normal biventricular systolic function. No pathologic valve stenosis or regurgitation. normal pulmonary pressures based on the TR jet. Findings: Anatomic Relationships: Abdominal situs solitus. There is levocardia. Atrial situs solitus. The AV alignment is concordant. The ventricular looping is D-looped. The VA connection is concordant. The arterial relationships are normal. Systemic Veins: Normal right SVC. Normal IVC. Pulmonary Veins: limited views . Right Atrium: The right atrial size is normal. Left Atrium: The left atrial size is normal. Atrial Septum: limited views but appears Intact atrial septum. Left to right atrial shunt, none. Tricuspid Valve: The tricuspid valve is structurally normal. There is no stenosis. There is physiologic regurgitation present. Mitral Valve: The mitral valve is structurally normal. There is no stenosis. There is no regurgitation present. Right Ventricle: The cavity size is normal. The wall thickness is normal. The systolic function is normal. RV Outflow Tract: The outflow tract is normal. Left Ventricle: The cavity size is normal. The wall thickness is normal. The systolic function is normal. LV Outflow Tract: The outflow tract is normal. Ventricular Septum: The septal motion is normal. There is no defect with no shunting. Pulmonary Valve: The pulmonic valve is structurally normal. There is no stenosis. There is physiologic regurgitation present. Aortic Valve: The aortic valve is structurally normal. There is no stenosis. There is no regurgitation present. Pulmonary Artery: The MPA is normal. The LPA is normal. The RPA is normal. Aorta: The aortic root is normal. The aortic arch is patent. The arch sidedness is left aortic arch. PDA: No PDA with no shunting. Coronary Arteries: Not visualized. Pericardium: No pericardial effusion. MEASUREMENTS: DOPPLER Mitral Valve MV pkE 1 m/s (zsc 0.2) MV E/A 1.5 (zsc -1.3) MV pkA 0.6 m/s (zsc 2.6) MV DeTm 274.5 ms (zsc 2.9) Tricuspid Valve TR pkPG 18.5 mmHg TR pkVel 2.1 m/s Left Ventricle BasLatE' 0.1 m/s BasSeptE' 0.1 m/s (zsc -0.6) 2D Aortic Valve AV sathya 21.8 mm Aorta AAo 27.5 mm (zsc -0.7) MMODE Ventricles LV%fs 31 % LVIDd 61.6 mm (zsc 1) LV EF 57.7 % LVIDs 42.5 mm (zsc 1.2) IVSd 9 mm (zsc -1.4) LVPWd 6.8 mm (zsc -2.6) IVSs 11.9 mm (zsc -1.6) LVPWs 11.5 mm LV Mass 192.9 g (zsc -1.6) AO / LA LAIDs 45.8 mm AoR 31.4 mm Signed 07/07/2017 02:13 PM Elham Grissom MD Jorge Mclean MD ECHO ORDERABLES [facility] [address] [place] [address] * XR CHEST 2VW (07/07/2017 1:09 PM CDT) Anatomical Region Laterality Modality Chest Radiographic Mellisa ging 07/07/2017 1:17 PM CDT Impressions 07/07/2017 1:17 PM CDT Clear lungs. Reading Radiologist: Sybil Katz MD on 07/07/2017 at 1:17 PM Narrative 07/07/2017 1:17 PM CDT Exam: Chest, 2 views HISTORY: 17-year-old female with morbid obesity COMPARISON: None FINDINGS: The mediastinal and cardiac silhouettes are normal. Both lungs are clear. There is no pleural effusion or pneumothorax. The osseous thorax is intact. Procedure Note Sybil Katz MD - 07/07/2017 Exam: Chest, 2 views HISTORY: 17-year-old female with morbid obesity COMPARISON: None FINDINGS: The mediastinal and cardiac silhouettes are normal. Both lungs are clear. There is no pleural effusion or pneumothorax. The osseous thorax is intact. IMPRESSION Clear lungs. Reading Radiologist: Sybil Katz MD on 07/07/2017 at 1:17 PM Jorge Mclean MD DIAGNOSTIC IMAGIN G ORDERABLES * XR BONE AGE HAND AND WRIST (06/09/2017 3:49 PM CDT) Anatomical Region Laterality Modality Upper Extremity, Wrist / Hand Ra diographic Imaging 06/09/2017 4:27 PM CDT Impressions 06/09/2017 4:41 PM CDT Normal skeletal development with bone age of 16 years in comparison with chronological age of 17 years. Two standard deviations for this age are 15 months. Narrative 06/09/2017 4:41 PM CDT INDICATION: Morbid (severe) obesity due to excess calories EXAMINATION: PA radiograph of the left hand 06/09/2017. COMPARISON: None] FINDINGS: Bone mineralization is normal. No focal soft tissue or osseous abnormality. In comparison with the published standards in [place] and Daniela for a Female patient, the skeletal development is most compatible with the 16 years standard. Procedure Note Carlton Suarez MD - 06/09/2017 INDICATION: Morbid (severe) obesity due to excess calories EXAMINATION: PA radiograph of the left hand 06/09/2017. COMPARISON: None] FINDINGS: Bone mineralization is normal. No focal soft tissue or osseous abnormality. In comparison with the published standards in [place] and Daniela for a Female patient, the skeletal development is most compatible with the 16 years standard. IMPRESSION Normal skeletal development with bone age of 16 years in comparison with chronological age of 17 years. Two standard deviations for this age are 15 months. Jorge Mclean MD DIAGNOSTIC IMAGIN G ORDERABLES * HEMOGLOBIN A1C (06/09/2017 3:38 PM CDT) Pathologist [facility] Hemoglobin A1c 4.8 3.4 - 6.1 % 06/09/2017 4:12 PM CDT [facility] Estimated Average Glucose 91 mg/dL 06/09/2017 4:12 PM CDT [facility] Whole Blood BLOOD SPECIMEN WITH EDTA / Unknown Lab Venipuncture / Unknown 06/09/2017 3:38 PM CDT 06/09/2017 3:55 PM CDT Jorge Mclean MD LAB - CHEMISTRY O RDERABLES [facility] [place] [address] * (ABNORMAL) VITAMIN D (25-HYDROXY) (06/09/2017 3:38 PM CDT) Vitamin D, 25 Hydroxy 16.1(L) 20 - 100 ng/mL 06/09/2017 6:31 PM CDT [facility] Blood BLOOD SPECIMEN / Unknown Lab Venipuncture / Unknown 06/09/2017 3:38 PM CDT 06/09/2017 3:54 PM CDT Narrative [facility] - 06/09/2017 6:31 PM CDT Vitamin D Status: Deficient <10 ng/mL Borderline 10-20 ng/mL Sufficient >20 ng/mL Toxic >100 ng/mL Jorge Mclean MD LAB - CHEMISTRY O RDERABLES Performing Organization Address City/[facility]/ZIP Co de Phone Number [facility] [address] [place] [address] * TYPE + SCREEN PANEL (06/09/2017 3:38 PM CDT) ABO O 06/09/2017 5:03 PM CDT [facility] Rh Type Positive 06/09/2017 5:03 PM CDT [facility] Comment:History checked. Col lect retype. Antibody Screen Negative 06/09/2017 5:03 PM CDT [facility] Blood Bank BLOOD SPECIMEN / Unknown Lab Venipuncture / Unknown 06/09/2017 3:38 PM CDT 06/09/2017 3:55 PM CDT Jorge Mclean MD LAB - BLOOD BANK ORDERABLES Performing Organization Address [facility] Co de Phone Number [facility] [address] [place] [address] * (ABNORMAL) CBC W DIFFERENTIAL (06/09/2017 3:38 PM CDT) Only the most recent of3 resultswithin the time period is included. WBC 7.3 4.5 - 11.0 x10E9/L 06/09/2017 4:24 PM CDT [facility] WBC Corrected x10E9/L 06/09/2017 4:24 PM CDT [facility] RBC 4.58 4.10 - 5.10 x10E12/L 06/09/2017 4:24 PM CDT [facility] Hemoglobin 12.0 12.0 - 16.0 gm/dL 06/09/2017 4:24 PM [facility] Hematocrit 37.2 36.0 - 47.0 % 06/09/2017 4:24 PM [facility] MCV 81.2 78.0 - 98.0 fl 06/09/2017 4:24 PM [facility] MCH 26.2 25.0 - 35.0 pg 06/09/2017 4:24 PM [facility] MCHC 32.3 31.0 - 37.0 gm/dL 06/09/2017 4:24 PM [facility] Platelet Count 411(H) 100 - 400 x10E9/L 06/09/2017 4:24 PM [facility] RDW-CV 13.6 11.5 - 14.0 % 06/09/2017 4:24 PM [facility] MPV 9.6(H) 6.0 - 9.5 fl 06/09/2017 4:24 PM [facility] Neutrophils % 64.3 31.0 - 78.0 % 06/09/2017 4:24 PM [facility] Lymphocytes % 26.1 13.0 - 54.0 % 06/09/2017 4:24 PM [facility] Monocytes % 6.8 4.0 - 13.0 % 06/09/2017 4:24 PM [facility] Eosinophils % 2.1 0.0 - 8.0 % 06/09/2017 4:24 PM [facility] Basophils % 0.3 % 06/09/2017 4:24 PM [facility] Immature Granulocytes 0.4 % 06/09/2017 4:24 PM [facility] Neutrophil Absolute 4.70 x10E9/L 06/09/2017 4:24 PM [facility] Lymphocytes Absolute 1.91 x10E9/L 06/09/2017 4:24 PM [facility] Monocytes Absolute 0.50 x10E9/L 06/09/2017 4:24 PM [facility] Eosinophils Absolute 0.15 x10E9/L 06/09/2017 4:24 PM [facility] Basophils Absolute 0.02 x10E9/L 06/09/2017 4:24 PM [facility] Immature Granulocytes Absolute 0.03 x10E9/L 06/09/2017 4:24 PM CDT [facility] nRBC Auto 0 /100 WBC 06/09/2017 4:24 PM CDT [facility] Blood BLOOD SPECIMEN / Unknown Lab Venipuncture / Unknown 06/09/2017 3:38 PM CDT 06/09/2017 3:55 PM CDT Jorge Mclean MD LAB - HEMATOLOGY ORDERABLES Performing Organization Address [facility] Co de Phone Number [facility] [address] [place] [phone] * HEPATIC FUNCTION PANEL (06/09/2017 3:38 PM CDT) Only the most recent of3 resultswithin the time period is included. Alkaline Phosphatase 105 100 - 390 U/L 06/09/2017 5:20 PM CDT [facility] ALT 12 8 - 65 U/L 06/09/2017 5:20 PM T [facility] AST 17 3 - 35 U/L 06/09/2017 5:20 PM T [facility] Protein Total 7.9 6.3 - 8.2 gm/dL 06/09/2017 5:20 PM T [facility] Albumin 4.0 3.3 - 4.9 gm/dL 06/09/2017 5:20 PM T [facility] Bilirubin Total 0.3 0.3 - 1.2 mg/dL 06/09/2017 5:20 PM T [facility] Bilirubin Direct 0.14 0.11 - 0.64 mg/dL 06/09/2017 5:20 PM T [facility] Blood BLOOD SPECIMEN / Unknown Lab Venipuncture / Unknown 06/09/2017 3:38 PM CDT 06/09/2017 3:54 PM CDT Jorge Mclean MD LAB - CHEMISTRY O RDERABLES Performing Organization Address [facility] Co de Phone Number [facility] [address] [place] [phone] * LIPID PROFILE (06/09/2017 3:38 PM CDT) Only the most recent of2 resultswithin the time period is included. Cholesterol 158 <170 mg/dL 06/09/2017 5:20 PM T [facility] Triglycerides 94 46 - 227 mg/dL 06/09/2017 5:20 PM [facility] HDL Cholesterol 43 >40 mg/dL 8 5:20 PM T [facility] LDL Calculated 96 <100 mg/dL 06/09/2017 5:20 PM [facility] VLDL Calculated 19 12 - 38 mg/dL 06/09/2017 5:20 PM [facility] Chol HDL Ratio 3.7 <=5.0 06/09/2017 5:20 PM [facility] Blood BLOOD SPECIMEN / Unknown Lab Venipuncture / Unknown 06/09/2017 3:38 PM CDT 06/09/2017 3:54 PM CDT Narrative [facility] - 06/09/2017 5:20 PM [facility] Lipid Profile Comment: Adult references ranges are the recommendation of the [place] [employer] , for those patients >18 years old. Cholestrol LDL Triglycerides HDL -- -- -- <40 Low <170 <100 <150 Desirable 170-199 130-159 150-199 Borderline High >200 160-189 200-499 >60 High Risk factor status for Coronary Artery Disease is necessary to place these lab findings in perspective. Note: This test is for fasting patients only. A non-fasting state may alter some of these results. Jorge Mclean MD LAB - CHEMISTRY O RDERABLES Performing Organization Address City/State/[facility] Co de Phone Number [facility] [address] [place] [address] * HELICOBACTER PYLORI UREASE (STL) (04/13/2017 11:09 AM GRADUATE [employer]IES DEAN) Helicobacter pylori Urease Initial Negative Negative 04/14/2017 1:51 PM [facility] Helicobacter pylori Urease Final Negative Negative 04/14/2017 1:51 PM [facility] Comment:This is an appended report. These results have been appended to a previously preliminary verified report. Microbiology GASTRIC ANTRAL BIOPSY SPECIMEN / Unknown Collection / Unknown 04/13/2017 11:09 AM [facility] [employer] 04/13/2017 11:42 AM [facility] Danyelle Mcpherson MD LAB - MICROBIOLOGY O RDERABLES Performing Organization Address [facility] Co de Phone Number [facility] [address] [place] [address] * HCG URINE QUALITATIVE - POCT (IP) BEAKER (04/13/2017 10:35 AM GRADU[facility] [employer]IES [facility]AN) HCG Qual Urine Negative Negative [facility] QC Verified Yes Yes [facility] PO [facility] TEST[facility] Urine URINE / Unknown 04/13/2017 1 0:35 AM [facility] [employer] Danyelle Mcpherson MD LAB - POINT OF CARE ORDERABLES Performing Organization Address [facility] de Phone Number [facility] [address] [place] [address] * EGD (04/13/2017 9:16 AM GRADU[facility] [employer] [facility]AN) Report Endoscopy POC _ Patient Name: Tulio Pimentel Date of : 2000 Admit Type: Outpatient Age: 17 Gender: Female Attending MD: Bruce Roman , Order #: [id number] _ Procedure: Upper GI endoscopy Indications: Epigastric abdominal pain Providers: Bruce Roman Referring MD: Reagan Gonsalez MD Medicines: General Anesthesia Complications: No immediate complications. Estimated blood loss: Minimal. _ Procedure: After obtaining informed consent, the endoscope was passed under direct vision. Throughout the procedure, the patient's blood pressure, pulse, and oxygen saturations were monitored continuously. The Endoscope was introduced through the mouth, and advanced to the third part of duodenum. The upper GI endoscopy was accomplished without difficulty. The patient tolerated the procedure fairly well. Findings: A single non-bleeding erosion was found in the lower third of the esophagus. Biopsies were taken with a cold forceps for histology. Diffuse moderately erythematous mucosa with stigmata of recent bleeding was found in the gastric body. Estimated blood loss was minimal. Diffuse moderate inflammation characterized by adherent blood and friability was found in the gastric body. Biopsies were taken with a cold forceps for histology. No gross lesions were noted at 2nd part of the duodenum. Estimated blood loss was minimal. Localized mild inflammation characterized by congestion (edema) and erythema was found in the duodenal bulb. Biopsies were taken with a cold forceps for histology. Impression: - A single non-bleeding erosion in the lower third of the esophagus. Biopsied. - Erythematous mucosa in the gastric body. - Gastritis. Biopsied. - No gross lesions in duodenum. - Duodenitis. Biopsied. - The examination was suspicious for reflux esophagitis. Biopsied. - Acute gastritis with hemorrhage. - High likelihood of duodenitis. Recommendation: - Await pathology results. Procedure Code(s): --- Professional --- 38937, Esophagogastroduo denoscopy, flexible, transoral; with biopsy, single or multiple --- Technical --- 42954, Esophagogastroduo denoscopy, flexible, transoral; with biopsy, single or multiple Diagnosis Code(s): --- Professional --- K22.10, Ulcer of esophagus without bleeding K31.89, Other diseases of stomach and duodenum K29.70, Gastritis, unspecified, without bleeding K29.01, Acute gastritis with bleeding K29.80, Duodenitis without bleeding R10.13, Epigastric pain --- Technical --- K22.10, Ulcer of esophagus without bleeding K31.89, Other diseases of stomach and duodenum K29.70, Gastritis, unspecified, without bleeding K29.01, Acute gastritis with bleeding K29.80, Duodenitis without bleeding R10.13, Epigastric pain CPT copyright 2015 [employer]. All rights reserved. The codes documented in this report are preliminary and upon research project coordinator review may be revised to meet current compliance requirements. Bruce Roman MD Bruce Roman, 04/13/2017 11:42:07 AM This report has been signed electronically. Number of Addenda: 0 Note Initiated On: 04/12/2017 9:16 AM Procedure Date: 04/13/2017 9:16:00 AM This report has been signed electronically. [facility] 04/13/2017 9:16 AM [facility] Danyelle Mcpherson MD GI PROCEDURE ORDERAB LES [facility] [address] [facility] [place] [address] * TISSUE TRANSGLUTAMINASE AB IGA (03/17/2017 4:13 PM [facility]) TTG Antibody IgA <2 0 - 3 U/mL 03/18/2017 2:15 PM GRADUATE STUDIES DEAN [facility] Comment: Negative 0 - 3 Weak Positive 4 - 10 Positive >10 Tissue Transglutaminase (tTG) has been identified as the endomysial antigen. Studies have demonstr- ated that endomysial IgA antibodies have over 99% specificity for gluten sensitive enteropathy. Blood BLOOD SPECIMEN / Unknown Lab Venipuncture / Unknown 03/17/2017 4:13 PM [facility] 03/17/2017 4:34 PM [facility] [employer]IES DEAN Narrative [facility] - 03/18/2017 2:15 PM [facility] [employer]IES [facility]AN Performed at: [address] [place] [id number] Project Construction Assistant Manager: Matthew Mcmullen PhD, Phone: [phone] Danyelle Mcpherson MD LAB - SEROLOGY ORDER RUDOLPH [facility]) [address] [place] [address] * LIPASE BLOOD (03/17/2017 4:13 PM [facility]) Lipase 10 10 - 220 U/L 03/17/2017 5:22 PM GRADUATE STUDIES DEAN [facility] Blood BLOOD SPECIMEN / Unknown Lab Venipuncture / Unknown 03/17/2017 4:13 PM [facility] [employer] 03/17/2017 4:34 PM [facility] [employer]AN Danyelle Mcpherson MD LAB - CHEMISTRY RAFAEL ALICIA Performing Organization Address City/[facility]/ZIP Co de Phone Number [facility] [address] [place] [id number] * GGT (03/17/2017 4:13 PM [facility] [employer]AN) GGT 15 8 - 69 U/L 03/17/2017 5:22 PM [facility] [employer]IES DEAN [facility] Blood BLOOD SPECIMEN / Unknown Lab Venipuncture / Unknown 03/17/2017 4:13 PM [facility] [employer] 03/17/2017 4:34 PM [facility] [employer]AN Danyelle Mcpherson MD LAB - CHEMISTRY RAFAEL ALICIA Performing Organization Address City/[facility]/ZIP Co de Phone Number [facility] [address] [place] [phone] * AMYLASE BLOOD (03/17/2017 4:13 PM [facility]) Amylase 50 5 - 65 U/L 03/17/2017 5:22 PM [facility] [employer]IES DEAN [facility] Blood BLOOD SPECIMEN / Unknown Lab Venipuncture / Unknown 03/17/2017 4:13 PM [facility] 03/17/2017 4:34 PM [facility] [employer] DEAN Danyelle Mcpherson MD LAB - CHEMISTRY RAFAEL ALICIA Performing Organization Address City/[facility]/ZIP Co de Phone Number [facility] [address] [place] [address] * IGA BLOOD (03/17/2017 4:13 PM GRADUATE STUDIES DEAN) [facility] IgA 283 65 - 421 mg/dL 03/17/2017 5:22 PM [facility] Blood BLOOD SPECIMEN / Unknown Lab Venipuncture / Unknown 03/17/2017 4:13 PM [facility] [employer]AN 03/17/2017 4:34 PM [facility] [employer] DEAN Danyelle Mcpherson MD LAB - CHEMISTRY RAFAEL ALICIA Performing Organization Address City/[facility]/ZIP Co de Phone Number [facility] [address] [place] [address] * LAB RESULTS ORDER (12/25/2016 6:32 PM [facility]AN) Only the most recent of2 resultswithin the time period is included. Narrative 12/25/2016 6:32 PM [facility]AN Ordered by an unspecified provider. Scanned Document LAB - THERAPEUTIC DR NICHOLE MONITORING ORDERABLES * HCG URINE QUALITATIVE (12/21/2016 11:56 PM GRADUATE STUDIES DEAN) [facility] hCG Qualitative Urine Negative Negative 12/22/2016 12:08 AM [facility] Urine URINE / Unknown Collection / Unknown 12/21/2016 11:56 PM [facility] [employer]AN 12/22/2016 12:00 AM [facility] Michelle Morales MD LAB - URINALYSIS ORD LI Performing Organization Address [facility]/ZIP Co de Phone Number [facility] [address] [place] [address] * (ABNORMAL) COMPREHENSIVE METABOLIC PANEL (12/21/2016 9:42 PM [facility]AN) [facility] Glucose 75 70 - 105 mg/dL 12/21/2016 10:34 PM [facility] Sodium 141 136 - 145 mmol/L 12/21/2016 10:34 PM [facility] Potassium 3.8 3.5 - 5.1 mmol/L 12/21/2016 10:34 PM [facility] Chloride 107 98 - 107 mmol/L 12/21/2016 10:34 PM [facility] CO2 22 20 - 28 mmol/L 12/21/2016 10:34 PM [facility] Calcium 9.69 9.08 - 10.48 mg/dL 12/21/2016 10:34 PM [facility] Anion Gap 12 5 - 20 mmol/L 12/21/2016 10:34 PM [facility] BUN 5.2(L) 5.3 - 18.7 mg/dL 12/21/2016 10:34 PM [facility] Creatinine 0.64 0.61 - 1.07 mg/dL 12/21/2016 10:34 PM [facility] Alkaline Phosphatase 152 100 - 390 U/L 12/21/2016 10:34 PM [facility] ALT 143(H) 8 - 65 U/L 12/21/2016 10:34 PM [facility] AST 82(H) 3 - 35 U/L 12/21/2016 10:34 PM [facility] Protein Total 8.0 6.3 - 8.2 gm/dL 12/21/2016 10:34 PM [facility] Albumin 3.9 3.3 - 4.9 gm/dL 12/21/2016 10:34 PM [facility] Bilirubin Total 0.9 0.3 - 1.2 mg/dL 12/21/2016 10:34 PM [facility] eGFR by MDRD mL/min/1.7 3m2 12/21/2016 10:34 PM [facility] Comment: eGFR calculations are not performed for children under 18 years old. eGFR by MDRD mL/min/1.7 3m2 12/21/2016 10:34 PM [facility] Comment: eGFR calculations are not performed for children under 18 years old. Blood BLOOD SPECIMEN / Unknown Lab Venipuncture / Unknown 12/21/2016 9:42 PM [facility]UDIES DEAN 12/21/2016 9:57 PM [facility] Michelle Morales MD LAB - CHEMISTRY RAFAEL ALICIA [facility] [address] [place] [address] * PHOSPHORUS BLOOD (12/21/2016 9:42 PM [facility]) [facility] Signature Phosphorus 3.49 2.88 - 5.08 mg/dL 12/21/2016 10:34 PM GRADUATE STUDIES DEAN [facility] Blood BLOOD SPECIMEN / Unknown Lab Venipuncture / Unknown 12/21/2016 9:42 PM GRADUATE STUDIES DEAN 12/21/2016 9:57 PM [facility] STUDIES DEAN Michelle Morales MD LAB - CHEMISTRY RAFAEL ALICIA Performing Organization Address [facility]/ZIP Co de Phone Number [facility] [address] [place] [phone] * MAGNESIUM BLOOD (12/21/2016 9:42 PM GRADUATE STUDIES DEAN) Pathologist [facility] Magnesium 1.9 1.7 - 2.3 mg/dL 12/21/2016 10:34 PM GRADUATE STUDIES DEAN [facility] Blood BLOOD SPECIMEN / Unknown Lab Venipuncture / Unknown 12/21/2016 9:42 PM GRADUATE STUDIES DEAN 12/21/2016 9:57 PM [facility]AN Michelle Morales MD LAB - CHEMISTRY RAFAEL ALICIA Performing Organization Address City/[facility] Co de Phone Number [facility] [address] [place] [phone] * BASIC METABOLIC PANEL (CALCIUM TOTAL) (10/04/2014 7:18 AM CDT) [facility] Glucose 99 65 - 99 mg/dL [facility] Comment: Fasting reference interval BUN 10 7 - 20 mg/dL [facility] Creatinine 0.69 0.40 - 1.00 mg/dL [facility] Comment: Patient is <18 years old. Unable to calculate eGFR. BUN/Creatinine Ratio NOT APPLICABLE 6 - 22 (calc) [facility] Sodium 140 135 - 146 mmol/L [facility] Potassium 4.3 3.8 - 5.1 mmol/L [facility] Chloride 106 98 - 110 mmol/L [facility] CO2 25 19 - 30 mmol/L [facility] Calcium 9.5 8.9 - 10.4 mg/dL [facility] Comment: Test Performed at: [facility] [address] [place] [address] CARLTON PAPPAS DO,MPH 10/04/2014 7:18 AM CDT 10/04/2014 7:19 AM CDT Michael Melara MD LAB - CHEMISTRY RAFAEL ALICIA Performing Organization Address [facility] Co de Phone Number [facility] [phone] [place] [address] * ALT (10/04/2014 7:18 AM CDT) Pathologist [facility] ALT 11 6 - 19 U/L [facility] Comment: Test Performed at: [facility] [id number] Charge Payment [facility] [employer] [id number] CARLTON PAPPSA DO,MPH 10/04/2014 7:18 AM CDT 10/04/2014 7:19 AM CDT Michael Melara MD LAB - CHEMISTRY RAFAEL ALICIA Performing Organization Address [facility] Co de Phone Number [facility] [address] [place] [address] * AST BLOOD (10/04/2014 7:18 AM CDT) Pathologist [facility] AST 14 12 - 32 U/L [facility] Comment: Test Performed at: [facility] [id number] [place] [id number] CARLTON PAPPAS DO,MPH 10/04/2014 7:18 AM CDT 10/04/2014 7:19 AM CDT Michael Melara MD LAB - CHEMISTRY RAFAEL ALICIA Performing Organization Address [facility] Co de Phone Number [facility] [address] [place] [address] * (ABNORMAL) THYROID ANTIBODY PANEL (07/17/2010 10:55 AM CDT) [facility] Thyroglobulin Antibody 294.0(H) 0.0 - 20.0 IU/ml [facility] Thyroid Peroxidase TPO Antibody 535.7(H) 0.0 - 9.0 IU/ml [facility] Comment Ref Lab [facility] Comment: TEST INFORMATION: Thyroglobulin Antibody Effective June 16, 2010 A value of 20.0 IU/mL or less indicates a negative result for thyroglobulin antibodies. The Thyroglubulin Antibody assay is being performed using the Siemens Immulite 2000. BLOOD SPECIMEN / Unknown 07/17/2010 10:55 AM CDT 07/17/2010 11:01 AM CDT Narrative Resulting Agency Comment Performed By [facility] [address] [place] [id number] Salina Schilling MD LAB - CHEMISTRY RAFAEL ALICIA Performing Organization Address City/[facility]/ZIP Co de Phone Number [facility] [place] [address] * CHOLESTEROL BLOOD (07/17/2010 10:55 AM CDT) Cholesterol 171 Desirable level <200 mg/dl [facility] BLOOD SPECIMEN / Unknown 07/17/2010 10:55 AM CDT 07/17/2010 11:00 AM CDT Salina Schilling MD LAB - CHEMISTRY RAFAEL ALICIA Performing Organization Address [facility] Co de Phone Number [facility] [address] [place] [address] Care Teams Student Finance Specialist Relationship Specialty Start Date End Date Reagan Gonsalez MD PCP - General Pediatrics 11/21/14
--- OUTSIDE RECORDS SUMMARY | 2024-03-18 08:06 | XMS_ITS | Clinical Summary ---
Author Organization [facility] Address [address] [place] [address] Care Team Providers Care Dispatch Coordinator Name Role Phone Reagan Gonsalez MD Primary Care Provider [phone] Source Comments [facility],non-owned Affiliates and Associated Physician Practices is amultiple site organization consisting of ambulatory clinics and hospital sitesin [place], [place], [place] and [place]. This disclosure is being madepursuant to the Care Everywhere program and may not contain all information available regarding this patient. Last updated 17.[facility] SeeMore Interactive Allergies Active Allergy Reactions Criticality Noted Date Comments Food Rash,Other Medium 04/15/2017 pomegrante Medications * Be aware that medications may not be up to date on this document. Alwaysverify current medications with the patient. Medication Sig Dispensed Refills Start Date End Date Status EVGENY, 28, tablet TK 1 T PO QD 3 10/10/2016 Ac tive multivitamin daily (THERAGRAN) tablet Take 1 tablet by mouth daily with food Active levothyroxine (SYNTHROID) 75 MCG tabletIndications:Acqu ired hypothyroidism Take 1 tablet by mouth daily before breakfast 30 tablet 5 08/18/2017 Active ondansetron, disintegrating, (ZOFRAN ODT) 8 MG tabletIndications:Naus ea and Vomiting Take 1 tablet by mouth every 4 hours as needed Allow tablet to dissolve on the tongue Reasons: Nausea and Vomiting 40 tablet 02/24/2018 Active famotidine (PEPCID) 20 MG tablet Take 1 tablet by mouth 2 times daily 60 tablet 5 02/24/2018 Active Active Problems Problem Noted Date Diagnosed Date 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 L-thyroxine 0.075 mg daily 2. Obtain serum TSH in 4-6 weeks 3. Return appointment in six months. Assessment & Plan (03/04/2017 2:10 PM RADIO BROADCASTER): H/o mild, fluctuating, acquired hypothyroidism; euthyroid off L-thyroxine therapy x 1 yr. 1. Reassurance. 2. Expectant observation 3. Return appointment in six months to repeat thyroid hormone levels; if normal at that time, annual serum TSH. 4. See website: [email or web address].org for patient information handouts - Hypothyroidism Assessment & Plan (04/13/2016 1:40 PM RADIO BROADCASTER): Undertreated secondary to inconsistent medication adherence. 1. L-thyroxine 0.05 mg daily (counseled to take medication consistently each day for the next several weeks before repeating serum thyroid hormone levels to assess adequacy of this dosage. 2. Obtain copies of prior blood test results. 3. Counseled risks/benefits, importance of medication adherence. 4. Return appointment in six months. Assessment & Plan (08/28/2014 8:19 AM CDT): Undertreated secondary to poor medication adherence/inadequate parental/adult supervision 1. L-thyroxine 0.05 mg daily. 2. Obtain serum TSH, total T4, fasting lipid profile and basic metabolic panel, AST/ALT in 4 weeks. 3. Return appointment in three to four months. Sleep disorder breathing Family History Medical History Relation Name Comments Obesity Father Anesthesia Reaction Mother difficul ty awakening Obesity Mother Relation Name Status Comments Father Mother Social History Tobacco Use Types Packs/Day Years [...] Comments Blood Pressure 121/70 02/24/2018 11:36 AM RADIO BROADCASTER Pulse 58 02/24/2018 11:36 AM RADIO BROADCASTER Temperature 36 C (96.8 F) 02/24/2018 11:36 AM RADIO BROADCASTER Respiratory Rate 22 02/24/2018 11:3 6 AM RADIO BROADCASTER Oxygen Saturation 95% 02/24/2018 11: 36 AM RADIO BROADCASTER Inhaled Oxygen Concentration - - Weight 122.1 kg (269 lb 2.9 oz) 04/26/2018 8:00 AM CDT Height 175 cm (5' 8.9 ) 04/26/2018 8:00 AM CDT Body Mass Index 39.87 04/26/2018 8:00 AM CDT Plan of Treatment Health Maintenance Due Date Last Done Comments PAP SMEAR 2000 HIV SCREENING 01/31/2015 HPV VACCINE (1 - 3-dose series) 01/31/2015 HEPATITIS C SCREENING 01/27/2018 CHLAMYDIA/GONORRHEA SCREENING 08/09/2018 08/09/2017 DTAP/TDAP/TD VACCINES (1 - Tdap) 01/31/2019 HEPATITIS B VACCINE (1 of 3 - 19+ 3-dose series) 01/31/2019 COVID-19 VACCINE (1 - 2023-2 5 season) 2023 INFLUENZA VACCINE (#1) 2023 DEPRESSION SCREENING 02/09/2024 ZOSTER VACCINE (1 of 2) 01/31/2050 HIB VACCINE Aged Out No longer eligi ble based on patient's age to complete this topic MENINGOCOCCAL (Group B) VACCINE Aged Out No longer eligible based on patient's age to complete this topic MENINGOCOCCAL VACCINE Aged Out No roman lisbeth eligible based on patient's age to complete this topic PNEUMOCOCCAL VACCINE Aged Out No long er eligible based on patient's age to complete this topic Procedures Procedure Name Priority Date/Time Associated Diagnosis Comments CHLAMYDIA + GC AMPLIFIED PROBE Routine 08/09/2017 12:10 PM CDT from Last 3 Months or Most Recently Relevant to Health Maintenance Results * CHLAMYDIA + GC AMPLIFIED PROBE (08/09/2017 12:10 PM CDT) Chlamydia Amplified Probe Negative Negative 08/10/2017 11:40 AM CDT [facility] GC Amplified Probe Negative Negative 08/10/2017 11:40 AM CDT [facility] Urine URINE / Unknown Collection / Unknown 08/09/2017 12:10 PM CDT 08/09/2017 12:33 PM CDT Narrative [facility] - 08/10/2017 11:40 AM CDT This test was developed and its performance characteristics determined by the [facility], [facility]. Female urine specimens tested by the Gen-Probe [facility] have not been cleared or approved by [...] Villafana MD LAB - MICROBIOLOGY O RDERABLES [facility] [address] [place], [place] [address], [facility] [phone] from Last 3 Months or Most Recently Relevant to Health Maintenance Advance Directives * Full Code (Latest Code Status on File) Date Activated Date Inactivated Comments 12/22/2016 5:45 PM 12/23/2016 2:33 PM * Full Code Date Activated Date Inactivated Comments 12/21/2016 8:16 PM 12/22/2016 5:45 PM Care Teams Dispatch Coordinator Relationship Specialty Start Date End Date Reagan Gonsalez MD PCP - General Pediatrics 11/21/14
--- OUTSIDE RECORDS SUMMARY | 2024-03-18 08:06 | XMS_ITS | Referral Summary ---
Author Organization [facility] Address [address] [place] [address] Care Team Providers Care Field Service Analyst Name Role Phone Reagan Gonsalez MD Primary Care Provider [phone] Source Comments [facility],non-owned Affiliates and Associated Physician Practices is amultiple site organization consisting of ambulatory clinics and hospital sitesin [place], [place], [place] and [place]. This disclosure is being madepursuant to the Care Everywhere program and may not contain all information available regarding this patient. Last updated 17.[facility] Allergies Active Allergy Reactions Criticality Noted Date [...] months. Assessment & Plan (03/04/2017 2:10 PM GUILLOTINE OPERATOR): H/o mild, fluctuating, acquired hypothyroidism; euthyroid off L-thyroxine therapy x 1 yr. 1. Reassurance. 2. Expectant observation 3. Return appointment in six months to repeat thyroid hormone levels; if normal at that time, annual serum TSH. 4. See website: thyroid.org for patient information handouts - Hypothyroidism Assessment & Plan (04/13/2016 1:40 PM GUILLOTINE OPERATOR): Undertreated secondary to inconsistent medication adherence. 1. [...] three to four months. Sleep disorder breathing Social History Tobacco Use [...] Comments Blood Pressure 121/70 02/24/2018 11:36 AM GUILLOTINE OPERATOR Pulse 58 02/24/2018 11:36 AM GUILLOTINE OPERATOR Temperature 36 C (96.8 F) 02/24/2018 11:36 AM GUILLOTINE OPERATOR Respiratory Rate 22 02/24/2018 11:3 6 AM GUILLOTINE OPERATOR Oxygen Saturation 95% 02/24/2018 11: 36 AM GUILLOTINE OPERATOR Inhaled Oxygen Concentration - - Weight 122.1 kg (269 lb 2.9 oz) 04/26/2018 8:00 AM CDT Height 175 cm (5' 8.9 ) 04/26/2018 8:00 AM CDT Body Mass Index 39.87 04/26/2018 8:00 AM CDT Functional Status Functional Status Response Date of Assess ment Is person deaf or have serious hearing difficult y? No 08/03/2017 Is person blind or have serious difficulty seein g? No 08/03/2017 Does person have serious dif ficulty walking/climbing stairs? No 08/03/2017 Does person have difficulty dressing/bathing? No 08/03/2017 Does person have difficulty doing errands alone? No 08/03/2017 Cognitive Status Response Date of Assessm ent Does person have difficulty concentrating/remembering/making decisions? No 08/03/2017 Plan of Treatment Not on file Procedures Procedure Name Priority Date/Time Associated Diagnosis Comments CHLAMYDIA + GC AMPLIFIED PROBE Routine 08/09/2017 12:10 PM CDT from Last 3 Months or Most Recently Relevant to Health Maintenance Results * CHLAMYDIA + GC AMPLIFIED PROBE (08/09/2017 12:10 PM CDT) Chlamydia Amplified Probe Negative Negative 08/10/2017 11:40 AM CDT [facility] GC Amplified Probe Negative Negative 08/10/2017 11:40 AM CDT [facility] Urine URINE / Unknown Collection / Unknown 08/09/2017 12:10 PM CDT 08/09/2017 12:33 PM CDT Narrative [facility] - 08/10/2017 11:40 AM CDT This test was developed and its performance characteristics determined by the [facility], [facility]. Female urine specimens tested by the Gen-Probe [facility] have not been cleared or approved by [...] Villafana MD LAB - MICROBIOLOGY O RDERABLES [facility] [address] [place] [address], [facility] [phone] from Last 3 Months or Most Recently Relevant to Health Maintenance Advance Directives * Full Code (Latest Code Status on File) Date Activated Date Inactivated Comments 12/22/2016 5:45 PM 12/23/2016 2:33 PM * Full Code Date Activated Date Inactivated Comments 12/21/2016 8:16 PM 12/22/2016 5:45 PM Care Teams Field Service Analyst Relationship Specialty Start Date End Date Reagan Gonsalez MD PCP - General Pediatrics 11/21/14
--- OUTSIDE RECORDS SUMMARY | 2024-03-18 08:06 | XMS_ITS | Referral Summary ---
Author Organization [facility] Address [address] [place] [address] Care Team Providers Care Sailing Officer Name Role Phone Reagan Gonsalez MD Unavailable Дмитрий Steele MD Primary Care Provider [phone] Allergies Active Allergy Reactions Criticality Noted Date Comments Pomegranate Hives Medium 12/03/2018 Fluoxetine Unknown 08/28/2022 Medications levothyroxine (SYNTHROID, LEVOTHROID) 75 mcg tablet Take 75 mcg by mouth 8 Active famotidine (PEPCID) 20 mg tablet Take 1 tablet by mouth 2 (two) times a day 5 9 Active multivitamin,tx -minerals (VITAMINS AND MINERALS) tablet Take 1 tablet by mouth Active norgestimate-et hinyl estradiol (TRINESSA, 28,) 0.18/0.215/0.25 mg-35 mcg (28) per tablet TK 1 T PO QD 7 Active phenazopyridine (PYRIDIUM) 200 mg tabletIndicatio ns:Urinary Tract Irritation Take 1 tablet (200 mg total) by mouth 3 (three) times a day 6 tablet 0 Active Additional Information Patient not taking.Reported on 10/11/2020 nitrofurantoin monohydrate (MACROBID) 100 mg capsule Take 1 capsule (100 mg total) by mouth 2 (two) times a day 10 capsule 0 Active Additional Information Patient not taking.Reported on 10/11/2020 oseltamivir (TAMIFLU) 75 mg capsule Take 1 capsule (75 mg total) by mouth every 12 (twelve) hours Collaborating physician Elpidio Castelan MD 10 capsule 0 Active Additional Information Patient not taking.Reported on 10/11/2020 promethazine-DM (PROMETHAZINE-D M) 1.25-3 mg/mL syrup Take 5 mL by mouth 4 (four) times a day as needed for cough (And runny nose) May substitute with Tussin AC same amount and directions. Collaborating physician Elpidio Castelan MD 118 mL 0 Active Additional Information Patient not taking.Reported on 10/11/2020 ibuprofen (ADVIL,MOTRIN) 600 mg tablet Take 1 tablet (600 mg total) by mouth 3 (three) times a day Take with food p.r.n. pain and/or fever. Collaborating physician Elpidio Castelan MD 20 tablet 0 Active Additional Information Patient not taking.Reported on 10/11/2020 Active Problems Problem Noted Date Diagnosed Date Influenza-like illness 04/26/2019 Exposure to influenza 04/26/2019 Social History Tobacco Use Types Packs/Day Years Used Date Smoking Tobacco: Never Smokeless Tobacco: Never Tobacco Cessation:Counseling Given: No Personal Safety Answer Date Recorded Have you ever been in or are you currently in a harmful physical or emotional relationship or is someone making you feel afraid or unsafe? Denies 08/28/2022 Comments Unknown Sex and Gender Information Value Date Recorded Sex Assigned at Not on file Legal Sex Female 9:56 AM SENIOR STRUCTURAL ENGINEER Gender Identity Not on file Sexual Orientation Not on file Last Filed Vital Signs Vital Sign Reading Time Taken Comments Blood Pressure 119/78 08/28/2022 5:08 PM CDT Pulse 87 08/28/2022 3:22 PM CDT Temperature 36.7 C (98.1 F) 08/28/2022 3:22 PM CDT Respiratory Rate 16 08/28/2022 5:08 PM CDT Oxygen Saturation 100% 08/28/2022 3:22 PM CDT Inhaled Oxygen Concentration - - Weight 90.7 kg (200 lb) 08/28/2022 3:22 PM CDT Height 172.7 cm (5' 8 ) 08/28/2022 3:22 PM CDT Body Mass Index 30.41 08/28/2022 3:22 PM CDT Plan of Treatment Not on file Procedures Procedure Name Priority Date/Time Associated Diagnosis Comments HEPATITIS PANEL, ACUTE Routine 12/20/2016 4:34 AM SENIOR STRUCTURAL ENGINEER from Last 3 Months or Most Recently Relevant to Health Maintenance Results * Hepatitis panel, acute (12/20/2016 4:34 AM SENIOR STRUCTURAL ENGINEER) Hep A IgM Nonreactive Nonreactive [facility] Comment: Interpretive Data If test is reported as GRAYZONE, new sample should be drawn in two weeks for testing. Current interpretive data was last revised on 2016. Hep B core IgM Nonreactive Nonreactive [facility] Comment: Interpretive Data If test is reported as GRAYZONE, new sample should be drawn for testing. Current interpretive data was last revised on 2016. Hep C Ab Nonreactive Nonreactive [facility] Comment: Interpretive Data Positive and greyzone results should be confirmed by a molecular method. If positive or greyzone, a second separately collected sample should be submitted for Hepatitis C Virus RNA. Detection and Quantitation by Real-Time Reverse Pie Cutter-PCR.Current Interpretive data was last revised on 2016. HepBsAg Nonreactive Nonreactive [facility] Blood specimen (specimen) 12/20/2016 4:34 AM SENIOR STRUCTURAL ENGINEER 12/20/2016 5:02 AM SENIOR STRUCTURAL ENGINEER Narrative [facility] - 12/20/2016 8:50 AM SENIOR STRUCTURAL ENGINEER AM labs us Notinfile Unknown LAB MICROBIOLOGY - GENERAL ORD ERABLES Edited Result - Final [facility] Department [place] [address] from Last 3 Months or Most Recently Relevant to Health Maintenance Insurance [facility] [employer] [place] [address] Care Teams Sailing Officer Relationship Specialty Start Date End Date Дмитрий Steele MD [address] [place] [id number] PCP - General Internal Medicine 08/28/22 Reagan Gonsalez MD 12/21/16
--- OUTSIDE RECORDS SUMMARY | 2024-03-18 08:06 | XMS_ITS | Clinical Summary ---
Author Organization [facility] Address [address] [place] [address] Care Team Providers Care Cashier Office Name Role Phone Reagan Gonsalez MD Unavailable Дмитрий Steele MD Primary Care Provider [phone] Allergies Active Allergy Reactions Criticality Noted Date [...] Influenza-like illness 04/26/2019 Exposure to influenza 04/26/2019 Surgical History Surgery Date Site/Laterality Comments SLEEVE GASTROPLASTY CHOLECYSTECTOMY TONSILLECTOMY Medical History Medical History Date Comments Hypothyroidism Social History Tobacco Use Types Packs/Day Years [...] on file Legal Sex Female 9:56 AM PROCESS LABORATORY SPECIALIST Gender Identity Not on file Sexual Orientation Not on file Obstetrics History Last Filed Vital Signs Vital Sign Reading [...] 08/28/2022 3:22 PM CDT Plan of Treatment Health Maintenance Due Date Last Done Comments Cervical Cancer Screening 2000 Depression Screening 2000 HPV Vaccines (2 - 3-dose series) 10/21/2017 09/23/2017 Regular Well Visit/Exam 18-64 01/31/2018 DTaP/Tdap/Td Vaccine (6 - Td or Tdap) 06/17/2020 06/17/2010, 01/02/2004, 08/02/2001, Additional history exists Covid-19 Vaccine ( season) 2023 02/22/2021, 08/05/2020, 07/15/2020 Influenza Vaccine (#1) 2023 8, 11/19/2014, 12/22/2013 Pneumococcal vaccine <65 Aged Out 2000 No longer eligible based on patient's age to complete this topic Hepatitis B Screening Completed 02/04/2001 , 2000, 2000 Varicella Vaccines Completed 06/17/2010, 08/02/2001 Hepatitis C Screening Completed 12/20/2016 Procedures Procedure Name Priority Date/Time Associated Diagnosis Comments HEPATITIS PANEL, ACUTE Routine 12/20/2016 4:34 AM PROCESS LABORATORY SPECIALIST from Last 3 Months or Most Recently Relevant to Health Maintenance Results * Hepatitis panel, acute (12/20/2016 4:34 AM PROCESS LABORATORY SPECIALIST) Hep A IgM Nonreactive Nonreactive [facility] Comment: Interpretive Data If test is reported as GRAYZONE, new sample should be drawn in two weeks for testing. Current interpretive data was last revised on 2016. Hep B core IgM Nonreactive Nonreactive [facility] Comment: Interpretive Data If test is reported as GRAYZONE, new sample should be drawn for testing. Current interpretive data was last revised on 2016. Hep C Ab Nonreactive Nonreactive [facility] Comment: Interpretive Data Positive and greyzone results should be confirmed by a molecular method. If positive or greyzone, a second separately collected sample should be submitted for Hepatitis C Virus RNA. Detection and Quantitation by Real-Time Reverse Computer Support Specialist-PCR.Current Interpretive data was last revised on 2016. HepBsAg Nonreactive Nonreactive [facility] Blood specimen (specimen) 12/20/2016 4:34 AM PROCESS LABORATORY SPECIALIST 12/20/2016 5:02 AM PROCESS LABORATORY SPECIALIST Narrative [facility] - 12/20/2016 8:50 AM PROCESS LABORATORY SPECIALIST AM labs us Notinfile Unknown LAB MICROBIOLOGY - GENERAL ORD ERABLES Edited Result - Final [facility] [place] [address] from Last 3 Months or Most Recently Relevant to Health Maintenance [place] [address] [place] [address] [facility] [employer] [place] [id number] Care Teams Cashier Office Relationship Specialty Start Date End Date Дмитрий Steele MD [address] [place] [id number] PCP - General Internal Medicine 08/28/22 Reagan Gonsalez MD 12/21/16
--- OUTSIDE RECORDS SUMMARY | 2024-03-18 08:06 | XMS_ITS | Data Portability ---
Author Organization [facility] Rohini Ann Address [address] [facility] [place] [address] Care Team Providers Care Stunner Animal Name Role Phone MAE ARNOLD Primary Care Provider [phone] Assessment No assessment recorded. Plan of Treatment Reminders Order Date Submit Date Provider Last Modified By Organization Details Last Modified Time Details Appointments None recorded. Lab TSH + free T4, serum 2021 022 [facility], [address] [place] [address], [address], 2 08:19:51 influenza virus A + B and SARS CoV 2 and SARS-relat ed CoV RNA panel, SHIRA+probe, respirator y specimen 2022 023 [facility], [address] [place] [address], [place], [address], 3 16:36:57 CBC 2022 023 [facility], [address] [place] [address] 2, [place], [address], 3 15:10:40 CMP, serum or plasma 2022 023 [facility], [address] [place] [address], [place], [address], 3 15:10:38 lipid panel, serum 2022 023 [facility], [address] [place] [address], [place], [address], 3 15:10:37 TSH + free T4, serum 2022 023 [facility], [address] [facility], [facility] 2, [place], [address], 3 15:10:36 TSH + free T4, serum 2024 025 [facility], [address] [facility], [facility] 2, [place], [address], 5 06:26:01 CBC 2024 025 [facility], [address] [facility], [facility] 2, [place], [address], 5 06:26:05 CMP, serum or plasma 2024 025 [facility], [address] [place] [address], [facility] 2, [place], [address], 5 06:26:03 lipid panel, serum 2024 025 [facility], [address] [place] [address], [facility] 2, [place], [address], 5 06:26:02 Mycobacter ium tuberculos is stimulated gamma interferon , qual, blood 2024 025 [facility], [address] [place] [address], [facility] 2, [place], [address], 5 06:25:59 HbA1c (hemoglobi n A1c), blood 2024 025 [facility] In-Office Order, Internal Use Only DO Not Attach Compendium DO Not Attach Compendium, Do Not Delete/merge, [id number] 15:57:54 Referral None recorded. Procedures None recorded. Surgeries None recorded. Imaging None recorded. Medication Orders bupropion HCl SR 150 mg tablet,12 hr sustained- release 2021 022 [facility][id number], [address], [place], [place], [id number], 4 17:39:16 Unithroid 25 mcg tablet 2021 022 [email or web address] #43844, [address], [place], [place], [id number], 5 14:42:42 buspirone 5 mg tablet 2021 022 [facility] #71108, [address], [place], [place], [id number], 4 17:39:19 fluticason e propionate 50 mcg/actuat ion nasal spray,susp ension 2022 023 [facility]64788, [address], [place], [place], [id number], 3 14:24:30 levothyrox ine 50 mcg tablet 2022 023 [facility] #09384, [address], [place], [place], [id number], 4 17:39:23 venlafaxin e ER 75 mg capsule,ex tended release 24 hr 2022 023 [facility]391, [address], [place], [place], [id number], 4 17:39:25 Unithroid 25 mcg tablet 2023 025 [facility] #01807, [address], [place], [place], [id number], 5 14:43:09 sertraline 50 mg tablet 2023 025 [facility] #58955, [address], [place], [place], [id number], 14:43:13 levothyrox ine 50 mcg tablet 2024 [facility] #83518, [address], [place], [place], [id number], 15:05:50 Patient TargetsNo targets recorded. Patient Instructions Encounter Date Encounter Id Patient Instructions Last Modified By Organization Details Last Modified Time 03/26/2022 [id number] A healthy lifestyle: care instructions [email or web address] Not available 03/26/2022 10:48:54 upper respirator y infection (cold): care instructions [email or web address] Not available 03/26/2022 10:48:54 11/09/2022 [id number] A healthy lifestyle: care instructions [email or web address] Not available 11/09/2022 14:56:40 03/15/2024 [id number] A healthy lifestyle: care instructions [email or web address] Not available 03/15/2024 15:04:54 learning about tuberculosis (TB) jnanney Not available 03/15/2024 14:56:30 Reason for Referral None Reported. Results Created Date Observation Date Name Description Value Unit Range Abnormal Flag Note LastModifiedBy Organization Detail LastModifiedTime 12/02/1912/02/2021 TSH+F REE T4 TSH 4.870 uIU/m L 0.450- 4.500 above high normal Not Available [facility] [address] [place], [address], 12/02/2021 08:19:51 12/02/1912/02/2021 TSH+F REE T4 T4,free(dire ct) 0.92 NG/dL 0.82-1 .77 Not Available [facility] [address] [place], [address], 12/02/2021 08:19:51 03/26/19 23 03/27/2022 COVID -19, FLU A+B SHIRA sars-cov-2, SHIRA Not Detect ed notdet ected Not Available [facility] [address] [facility], [place], [address], 03/27/2022 16:36:57 03/26/19 23 03/27/2022 COVID -19, FLU A+B SHIRA influenza A, SHIRA Not Detect ed notdet ected Not Available [facility] [address] [facility], [place], [address], 03/27/2022 16:36:57 03/26/19 23 03/27/2022 COVID -19, FLU A+B SHIRA influenza B, SHIRA Not Detect ed notdet ected Not Available [facility] [address] [place], [address], 03/27/2022 16:36:57 03/26/19 23 03/27/2022 COVID -19, FLU A+B SHIRA test information: Commen t This nucle ic acid ampli ficat ion test was devel oped and its perfo rmanc e yayr cteri stics deter mined by [facility]. Nucle ic acid ampli ficat ion tests inclu de RT-PC R and TMA. This test has not been FDA clear ed or appro thais. This test has been autho rized by FDA under an Emerg ency Use Autho rizat ion (EUA) . This test is only autho rized for the durat ion of time the decla ratio n that circu mstan olivier exist justi fying the autho rizat ion of the emerg ency use of in vitro diagn ostic tests for detec tion of SARS- CoV-2 virus and/o r diagn osis of COVID -19 infec tion under secti on 564(b )(1) of the Act, 21 U.S.C . 360bb b-3(b ) (1), unles s the autho rizat ion is termi nated or revok ed soone r. When diagn ostic testi ng is negat abran, the possi bilit y of a false negat abran resul t shoul d be consi dered in the jena xt of a patie nt's recen t expos ures and the prese nce of clini yaw signs and sympt oms consi stent with COVID -19. An indiv idual witho ut sympt oms of COVID -19 and who is not naun ing SARS- CoV-2 virus would expec t to have a negat abran (not detec fatou) resul t in this assay . Not Available [facility] [address] [facility], [place], [address], 03/27/2022 16:36:57 11/10/1911/10/2022 TSH+F REE T4 TSH 3.460 uIU/m L 0.450- 4.500 Not Available [address], [address], 11/10/2022 15:10:36 11/10/19 23 11/10/2022 TSH+F REE T4 T4,free(dire ct) 0.89 NG/dL 0.82-1 .77 Not Available [address], [address], 11/10/2022 15:10:36 11/10/19 23 11/10/2022 LIPID PANEL cholesterol, total 165 mg/dL 100-19 9 Not Available [address], [address], 11/10/2022 15:10:37 11/10/19 23 11/10/2022 LIPID PANEL triglyceride s 61 mg/dL 0-149 Not Available [address], [address], 11/10/2022 15:10:37 11/10/19 23 11/10/2022 LIPID PANEL HDL cholesterol 57 mg/dL >39 Not Available [facility] [address], [address], 11/10/2022 15:10:37 11/10/19 23 11/10/2022 LIPID PANEL VLDL cholesterol yaw 12 mg/dL 5-40 Not Available [address], [address], 11/10/2022 15:10:37 11/10/19 23 11/10/2022 LIPID PANEL LDL chol calc ([facility]) 96 mg/dL 0-99 Not Available [address], [address], 11/10/2022 15:10:37 11/10/19 23 11/10/2022 COMP. METAB OLIC PANEL (14) glucose 83 mg/dL 70-99 Not Available [address], [address], 11/10/2022 15:10:38 11/10/19 23 11/10/2022 COMP. METAB OLIC PANEL (14) BUN 10 mg/dL 6-20 Not Available [address], [address], 11/10/2022 15:10:38 11/10/19 23 11/10/2022 COMP. METAB OLIC PANEL (14) creatinine 0.75 mg/dL 0.57-1 .00 Not Available [address], [address], 11/10/2022 15:10:38 11/10/19 23 11/10/2022 COMP. METAB OLIC PANEL (14) eGFR 115 mL/mi n/1.7 3 >59 Not Available [address], [address], 11/10/2022 15:10:38 11/10/19 23 11/10/2022 COMP. METAB OLIC PANEL (14) BUN/creatini ne ratio 13 9-23 Not Available [address], [address], 11/10/2022 15:10:38 11/10/19 23 11/10/2022 COMP. METAB OLIC PANEL (14) sodium 141 mmol/ L 134-14 4 Not Available [address], [address], 11/10/2022 15:10:38 11/10/19 23 11/10/2022 COMP. METAB OLIC PANEL (14) potassium 4.2 mmol/ L 3.5-5. 2 Not Available [address], [address], 11/10/2022 15:10:38 11/10/19 23 11/10/2022 COMP. METAB OLIC PANEL (14) chloride 106 mmol/ L 96-106 Not Available [address], [address], 11/10/2022 15:10:38 11/10/19 23 11/10/2022 COMP. METAB OLIC PANEL (14) carbon dioxide, total 23 mmol/ L 20-29 Not Available [address], [address], 11/10/2022 15:10:38 11/10/19 23 11/10/2022 COMP. METAB OLIC PANEL (14) calcium 9.3 mg/dL 8.7-10 .2 Not Available [address], [address], 11/10/2022 15:10:38 11/10/19 23 11/10/2022 COMP. METAB OLIC PANEL (14) protein, total 7.2 g/dL 6.0-8. 5 Not Available [address], [address], 11/10/2022 15:10:38 11/10/19 23 11/10/2022 COMP. METAB OLIC PANEL (14) albumin 4.3 g/dL 4.0-5. 0 Not Available [address], [address], 11/10/2022 15:10:38 11/10/19 23 11/10/2022 COMP. METAB OLIC PANEL (14) globulin, total 2.9 g/dL 1.5-4. 5 Not Available [address], [address], 11/10/2022 15:10:38 11/10/19 23 11/10/2022 COMP. METAB OLIC PANEL (14) A/G ratio 1.5 1.2-2. 2 Not Available [address], [address], 11/10/2022 15:10:38 11/10/19 23 11/10/2022 COMP. METAB OLIC PANEL (14) bilirubin, total 0.3 mg/dL 0.0-1. 2 Not Available [address], [address], 11/10/2022 15:10:38 11/10/19 23 11/10/2022 COMP. METAB OLIC PANEL (14) alkaline phosphatase 74 IU/L 44-121 Not Available [address], [address], 11/10/2022 15:10:38 11/10/19 23 11/10/2022 COMP. METAB OLIC PANEL (14) AST (SGOT) 13 IU/L 0-40 Not Available [address], [address], 11/10/2022 15:10:38 10/0211/10/2022 COMP. METAB OLIC PANEL (14) ALT (SGPT) 8 IU/L 0-32 Not Available [facility] & [address], [address], 11/10/2022 15:10:38 11/10/1911/10/2022 CBC, PLATE LET, NO DIFFE RENTI AL WBC 4.7 x10e3 /uL 3.4-10 .8 Not Available [address], [address], 11/10/2022 15:10:40 11/10/1911/10/2022 CBC, PLATE LET, NO DIFFE RENTI AL RBC 4.34 x10e6 /uL 3.77-5 .28 Not Available [address], [address], 11/10/2022 15:10:40 11/10/1911/10/2022 CBC, PLATE LET, NO DIFFE RENTI AL hemoglobin 12.5 g/dL 11.1-1 5.9 Not Available [address], [address], 11/10/2022 15:10:40 11/10/19 23 11/10/2022 CBC, PLATE LET, NO DIFFE RENTI AL hematocrit 37.4 % 34.0-4 6.6 Not Available [address], [address], 11/10/2022 15:10:40 11/10/1911/10/2022 CBC, PLATE LET, NO DIFFE RENTI AL MCV 86 fL 79-97 Not Available [address], [address], 11/10/2022 15:10:40 11/10/19 23 11/10/2022 CBC, PLATE LET, NO DIFFE RENTI AL MCH 28.8 pg 26.6-3 3.0 Not Available [facility] & [address], [address], 11/10/2022 15:10:40 11/10/19 23 11/10/2022 CBC, PLATE LET, NO DIFFE RENTI AL MCHC 33.4 g/dL 31.5-3 5.7 Not Available [address], [address], 11/10/2022 15:10:40 11/10/19 23 11/10/2022 CBC, PLATE LET, NO DIFFE RENTI AL RDW 12.4 % 11.7-1 5.4 Not Available [address], [address], 11/10/2022 15:10:40 11/10/19 23 11/10/2022 CBC, PLATE LET, NO DIFFE RENTI AL platelets 361 x10e3 /uL 150-45 0 Not Available [facility] & [address], [address], 11/10/2022 15:10:40 11/10/19 23 11/10/2022 CARDI OVASC ULAR REPOR T interpretati on Note Suppl ement al repor t is avail able. Not Available [address], [address], 11/10/2022 15:10:39 11/10/1911/10/2022 CARDI OVASC ULAR REPOR T pdf . Not Available [facility] & [address], [address], 11/10/2022 15:10:39 03/15/19 25 03/15/2024 HbA1c (hemo globi n A1c), blood HbA1c 4.9 Not Available In-Office Order Internal Use Only DO Not Attach Compendium DO Not Attach Compendium, Do Not Delete/merge, [id number] 03/15/2024 15:04:34 Result Notes None recorded. Problems Name Problem SNOMED Code Status Onset Date Resolution Date Notes Provider Name and Address Organization Details Recorded Time Mixed anxiety and depressive disorder 675867053 Active 2018 RADHA [place], [place] - [facility] 0 11:03:12 History of sleeve gastrectom y [id number] 107 Active 2019 Mainor Jesus MD Attn: Accounting, [address] [place], [place], [address] [place] [address], [facility] - [facility] 0 11:06:41 Hypothyroi dism 05677158 Active RADHA [place], [place] - [facility] 0 11:03:12 Morbid obesity 155852868 Active RADHA [place], [place] - [facility] 0 11:03:12 Irregular periods 41739673 Active RADHA [place], [place] - [facility] 0 11:03:12 Problem Notes None recorded. Procedures Surgical History Date Name Laterality Status Provider Name and Address Organization Details Recorded Time 024 Date of Last Pap Smear completed Carlyn Cervantes [place] - [place] 03/15/2024 14:43:47 laparoscopic sleeve gastrectomy completed Mainor Jesus MD Attn: Accounting,[address] - [place] 01/23/2019 10:55:01 cholecystectomy completed Shaji Jesus MD Attn: Accounting,[address] [place] [address], [facility] - SI 01/23/2019 10:55:25 Tonsillectomy completed Radha [place] - [place] 05/11/2019 11:09:28 Imaging Results None recorded. Procedure Notes None recorded. Medical Equipment None Reported. Allergies Allergen ID Allergen Name Allergen Category Reaction Reaction Severity Criticality Documentation Date Start Date Code Code System Note Provider Name and Address Organization Details Recorded Time 011308 Prozac medicatio n Not available Not available Not available 04/14/2021 12801 RxNorm nauso us, nerve pain, unabl e to move Not Available Not Available Not Available Medications Name Sig Start Date Stop Date Status Note LastModified by Organization Details LastModified Time amoxicillin 500 mg capsule Take 3 capsules twice a day by oral route with meals for 10 days. 09/23 completed Not Available Not Available Not Available buspirone 5 mg tablet TAKE 1 TABLET BY MOUTH TWICE DAILY 04/26 completed Not Available Not Available Not Available bupropion HCl SR 150 mg tablet,12 hr sustained-r elease TAKE 1 TABLET BY MOUTH TWICE DAILY 04/26 completed Not Available Not Available Not Available promethazin e-DM 6.25 mg-15 mg/5 mL oral syrup 05/10 completed Not Available Not Available Not Available venlafaxine ER 75 mg capsule,ext ended release 24 hr TAKE 1 CAPSULE BY MOUTH EVERY DAY 04/26 completed Not Available Not Available Not Available cetirizine 10 mg tablet 07/13 completed Not Available Not Available Not Available ibuprofen 800 mg tablet 07/13 completed Not Available Not Available Not Available fluconazole 150 mg tablet Take 1 tablet by oral route as directed for 1 day. 01/23 completed Not Available Not Available Not Available acetaminoph en 120 mg-codeine 12 mg/5 mL oral solution 09/23 completed Not Available Not Available Not Available hydrocodone 5 mg-acetamin ophen 325 mg tablet 07/13 completed Not Available Not Available Not Available ondansetron HCl 8 mg tablet TAKE 1 TABLET BY MOUTH EVERY 8 HOURS FOR 2 DAYS 11/09 completed Not Available Not Available Not Available phenazopyri dine 200 mg tablet 05/10 completed Not Available Not Available Not Available ondansetron HCl 4 mg tablet 03/15 completed Not Available Not Available Not Available famotidine 40 mg tablet 01/23 completed Not Available Not Available Not Available prednisone 20 mg tablet TAKE 1 TABLET BY MOUTH TWICE DAILY 03/15 completed Not Available Not Available Not Available metronidazo le 500 mg tablet Take 1 tablet every 12 hours by oral route as directed for 7 days. 01/23 completed Not Available Not Available Not Available acetaminoph en 300 mg-codeine 30 mg tablet 01/23 completed Not Available Not Available Not Available ciprofloxac in 500 mg tablet TAKE 1 TABLET BY MOUTH EVERY 12 HOURS FOR 10 DAYS 10/24 /2022 completed Not Available Not Available Not Available amoxicillin 500 mg tablet TAKE 1 TABLET BY MOUTH TWICE DAILY FOR 7 DAYS 03/15 completed Not Available Not Available Not Available ondansetron 8 mg disintegrat ing tablet 07/13 completed Not Available Not Available Not Available levothyroxi ne 75 mcg tablet 01/23 completed Not Available Not Available Not Available famotidine 20 mg tablet TAKE 1 TABLET BY MOUTH TWICE DAILY 04/14 completed Not Available Not Available Not Available dicyclomine 20 mg tablet Take 1 tablet twice a day by oral route as needed. 04/14 completed Not Available Not Available Not Available benzonatate 100 mg capsule TAKE 1 CAPSULE BY MOUTH THREE TIMES DAILY NEEDED FOR COUGH 03/15 completed Not Available Not Available Not Available levothyroxi ne 50 mcg tablet Take 1 tablet every day by oral route for 90 days. 2024 active Not Available Not Available Not Avai lable oseltamivir 75 mg capsule 05/10 completed Not Available Not Available Not Available buspirone 10 mg tablet TAKE 1 TABLET BY MOUTH TWICE DAILY 08/18 completed Not Available Not Available Not Available misoprostol 200 mcg tablet 04/14 completed Not Available Not Available Not Available promethazin e 25 mg tablet Take 1 tablet twice a day by oral route as needed. 04/14 completed Not Available Not Available Not Available polymyxin B sulfate 10,000 unit-trimet hoprim 1 mg/mL eye drops INSTILL 1 DROP INTO AFFECTED EYE(S) BY OPHTHALMI C ROUTE EVERY 6 HOURS 11/09 completed Not Available Not Available Not Available Mapap (acetaminop hen) 325 mg tablet 07/13 completed Not Available Not Available Not Available hydroxyzine HCl 25 mg tablet Take 1 tablet 3 times a day by oral route for 30 days. 2024 active Not Available Not Available Not Avai lable Unithroid 25 mcg tablet TAKE 1 TABLET BY MOUTH EVERY DAY 03/15 completed Not Available Not Available Not Available ibuprofen 600 mg tablet 05/10 completed Not Available Not Available Not Available methylpredn isolone 4 mg tablets in a dose pack FOLLOW PACKAGE DIRECTION S 11/09 completed Not Available Not Available Not Available ondansetron 4 mg disintegrat ing tablet TAKE 1 TABLET BY MOUTH EVERY 6 HOURS NEEDED FOR NAUSEA 03/15 completed Not Available Not Available Not Available fluoxetine 20 mg capsule Take 1 capsule every day by oral route at dinner. 05/10 completed Not Available Not Available Not Available fluticasone propionate 50 mcg/actuati on nasal spray,suspe nsion SHAKE LIQUID AND USE 1 SPRAY IN EACH NOSTRIL EVERY DAY 11/09 completed Not Available Not Available Not Available sertraline 50 mg tablet TAKE 1 TABLET BY MOUTH EVERY DAY 03/15 completed Not Available Not Available Not Available loratadine 10 mg tablet 04/14 completed Not Available Not Available Not Available amoxicillin 875 mg-potassiu m clavulanate 125 mg tablet Take 1 tablet every 12 hours by oral route for 10 days. 01/23 completed Not Available Not Available Not Available azithromyci n 500 mg tablet TAKE 1 TABLET BY MOUTH EVERY DAY FOR 3 DAYS 11/09 completed Not Available Not Available Not Available escitalopra m 10 mg tablet TAKE 1 TABLET BY MOUTH EVERY DAY 04/14 completed Not Available Not Available Not Available Mononessa (28) 0.25 mg-35 mcg tablet Take 1 tablet every day by oral route as directed. 06/01 completed Not Available Not Available Not Available Tri-Sprinte c (28) 0.18 mg(7)/0.215 mg(7)/0.25 mg(7)-35 mcg tablet Take 1 tablet every day by oral route. 04/14 completed Not Available Not Available Not Available nitrofurant oin monohydrate /macrocryst als 100 mg capsule 11/09 completed Not Available Not Available Not Available omeprazole 20 mg tablet,swapnil yed release 07/13 completed Not Available Not Available Not Available 28 mg iron-800 mcg tablet 01/23 completed Not Available Not Available Not Available Ashlyna 0.15 mg-30 mcg (84)/10 mcg(7) tablets,3 month dose pack TAKE 1 TABLET BY MOUTH EVERY DAY 01/23 completed Not Available Not Available Not Available Afluria Quad 4098-7793 (PF) 60 mcg (15 mcg x 4)/0.5 mL IM syringe 01/23 completed Not Available Not Available Not Available ID NOW COVID-19 Test Kit TEST DIRECTED 04/21 completed Not Available Not Available Not Available COVID-19 test specimen collection USE 1 KIT TODAY DIRECTED 04/21 completed Not Available Not Available Not Available Vitals Date Recorded Body height Body mass index (BMI) Body weight Body temperature Oxygen saturation Oxygen saturation in Arterial blood by Pulse oximetry Heart rate Systolic blood pressure Diastolic blood pressure Provider Name and Address Organization Details Last Updated DateTime 2 175.9 cm 40 kg/m2 552912. 72 g 97.6 [degF] 99 % 99 % 91 /min 110 mm[Hg] 70 mm[Hg] Clementine flynn MA [facility] 2 11:08:02 Date Recorded Body height Body mass index (BMI) Body weight Body temperature Oxygen saturation Oxygen saturation in Arterial blood by Pulse oximetry Heart rate Systolic blood pressure Diastolic blood pressure Provider Name and Address Organization Details Last Updated DateTime 3 175.9 cm 37.5 kg/m2 865922. 2 g 97.3 [degF] 99 % 99 % 72 /min 110 mm[Hg] 80 mm[Hg] Lyn Hinds MA [facility] 3 10:24:49 Date Recorded Body height Body mass index (BMI) Body weight Respiratory rate Oxygen saturation Oxygen saturation in Arterial blood by Pulse oximetry Heart rate Systolic blood pressure Diastolic blood pressure Provider Name and Address Organization Details Last Updated DateTime 3 175.9 cm 36.9 kg/m2 452262. 48 g 16 /min 99 % 99 % 71 /min 112 mm[Hg] 77 mm[Hg] Areli Otoole MA [facility] 3 14:26:24 Date Recorded Body height Body mass index (BMI) Body weight Oxygen saturation Oxygen saturation in Arterial blood by Pulse oximetry Heart rate Systolic blood pressure Diastolic blood pressure Provider Name and Address Organization Details Last Updated DateTime 4 175.9 cm 38.8 kg/m2 049925. 98 g 96 % 96 % 93 /min 130 mm[Hg] 82 mm[Hg] Areli Otoole MA [facility] 4 17:43:00 Date Recorded Body height Body mass index (BMI) Body weight Oxygen saturation Oxygen saturation in Arterial blood by Pulse oximetry Heart rate Systolic blood pressure Diastolic blood pressure Provider Name and Address Organization Details Last Updated DateTime 5 175.26 cm 39.3 kg/m2 514670. 57 g 97 % 97 % 118 /min 126 mm[Hg] 80 mm[Hg] Carlyn Cervantes MA [facility] 5 14:48:26 Social History Question Answer Notes LastModified by Organizat ion Details LastModified Time Tobacco Smoking Status Never Smoker Tammy Carnes MA null, [place] - [facility] 11/19/2014 16:48:31 What Is Your Level Of Alcohol Consumption? Occasional Rare Information not available 12/01/2021 Animal Exposure? Yes 1 Dog [email or web address] Informa tion not available 12/06/2015 Are You Blind Or Do You Have Difficulty Seeing? No Information not available 12/01/2021 Is Blood Transfusion Acceptable In An Emergency? Yes Information not available 05/11/2019 Are You Or Have You Been Involved With Bullying? No [email or web address] Information not available 12/06/2015 What Is Your Level Of Caffeine Consumption? Occasional Information not available 12/01/2021 How Much Tobacco Do You Chew? None Information not available 05/11/2019 What Type Of Edge Molder Do You Use? None [email or web address] Information not available 12/06/2015 In The 14 Days Before Symptom Onset, Have You Had Close Contact With A Laboratory-confi rmed COVID-19 While That Case Was Ill? No Information not available 04/14/2021 In The 14 Days Before Symptom Onset, Have You Had Close Contact With A Person Who Is Under Investigation For COVID-19 While That Person Was Ill? No Information not available 04/14/2021 Have You Been To An Area Known To Be High Risk For COVID-19? No Information not available 04/14/2021 Are You Currently Employed? Yes Information not available 05/11/2019 Are You Deaf Or Do You Have Serious Difficulty Hearing? No Information not available 12/01/2021 What Type Of Diet Are You Following? REGULAR [email or web address] Information not available 11/19/2014 Which Illicit Or Recreational Drugs Have You Used? Denies Information not available 05/11/2019 Education 12 Information not available 05/11/2019 What Is Your Occupation? [employer] Information not available 12/01/2021 What Is The Fluoride Status Of Your Home? Fluoridated [email or web address] Information not available 12/06/2015 What Is Your Home Situation? Other Self And Fiance Information not available 04/21/2021 Do You Use Insect Repellent Routinely? Yes Information not available 11/19/2014 Live Alone Or With Others? With Others Information not available 05/11/2019 Car Seat Type Or Seat Belt? Seat Belt [email or web address] Information not available 11/19/2014 Parent Involvement? Both Parents Involved [email or web address] Information not available 11/19/2014 Riding In Car Front Seat? Yes [email or web address] Information not available 11/19/2014 What Was The Date Of Your Most Recent Tobacco Screening? 03/15/2024 Information not available 03/15/2024 How Many Children Do You Have? 0 Information not available 05/11/2019 What Is Your Parents' Marital Status? Unmarried Information not available 11/19/2014 Performs Monthly Self-breast Exam? No Information not available 05/11/2019 Pool Exposure No [email or web address] Informatio n not available 12/06/2015 Do You Use Protection During Sex? Always Information not available 05/11/2019 What Is Your Relationship Status? Single Enagaged Information not available 12/01/2021 What Is The Name Of Your School? [employer] Information not available 12/01/2021 Do You Use Your Seat Belt Or Car Seat Routinely? Yes Information not available 04/14/2021 Seat Belts Used Routinely Yes Information not available 05/11/2019 Are You Sexually Active? Yes Information not available 05/11/2019 Do You Have Any Siblings? 1 Sister 1 Brother Information not available 11/19/2014 Do You Have Smoke And Carbon Monoxide Detectors In Your Home? Yes [email or web address] Information not available 11/19/2014 Are You Passively Exposed To Smoke? No [email or web address] Information not available 11/19/2014 How Much Tobacco Do You Smoke? No Information not available 05/11/2019 General Stress Level High Information not available 05/11/2019 Do You Feel Stressed (tense, Restless, Nervous, Or Anxious, Or Unable To Sleep At Night)? [id number] Information not available 04/14/2021 Do You Use Any Illicit Or Recreational Drugs? No Information not available 04/21/2021 Do You Use Sunscreen Routinely? No Information not available 05/11/2019 Has Tobacco Cessation Counseling Been Provided? No Information not available 04/21/2021 On What Date Was Tobacco Cessation Counseling Provided? 03/15/2024 Information not available 03/15/2024 Year In School HS Grad [email or web address] Informatio n not available 07/13/2018 Do You Or Have You Ever Used Any Other Forms Of Tobacco Or Nicotine? No Information not available 04/21/2021 Sex: Female Functional Status Question Answer Note LastModified by Organizat ion Details LastModified Time Are you able to care for yourself? Yes Information not available 04/14/2021 What is your exercise level? Occasional Information not available 12/01/2021 Mental Status None recorded. Family History Relationship Description Onset Age of this Age Resolved Age Notes LastModified by Organization Details LastModified Time Mother Obesity [email or web address] Not available 08/29/2015 11:46:29 Mother Hypothyroidi sm ssuthan Not available 2018 10:54:16 Mother Diabetes mellitus [email or web address] Not available 2018 10:54:28 Mother Multiple sclerosis ssuthan Not available 2018 10:54:35 Father Hypothyroidi sm ssuthan Not available 2018 10:54:16 Notes:celiac - sister Medical History Condition Response Other N High Blood Pressure N Blood Diseases N Breast Cancer N Lung Disease N Depression Y Blood Clots N Developmental or Behavioral Disorders N Breast Problem N Premature N Anesthesia Complications N Headaches/Migraines Y Anxiety Disorder Y Muscle, Joint, or Bone Problems N Vision or Eye Problems N Head Injury/Concussion N Polyps N Infertility N Acid Reflux (GERD) N Cancer N ADHD N Endometriosis N Bladder or Kidney Problems N High Cholesterol N Liver Disease N Headaches N Ear or Hearing Problems N Thyroid Problems Y Kidney or Bladder Problems N GI Problems N Acne N Skin Problems N Eating Disorder N Anemia Y Constipation N Ovarian Cancer N Diabetes N Bedwetting N Blood Transfusions N Seizures/Epilepsy N Heart Problems/Murmur N Abuse/Domestic Violence N Asthma N Allergies N Hepatitis N Heart Disease N Pre-Eclampsia N Osteoporosis N Chicken Pox N Autism Spectrum Disorder (ASD) N Gynecological History Statement/Question Response Flow Heavy Date of LMP 02/28/2024 STIs/STDs N HPV Vaccine Y Age at Menarche 14 Current Control Method IUD Sexually Active? Y Menses Monthly Y Date of Last Pap Smear 05/10/2023 Sexual Problems? N LMP Approximate Desired Control Method IUD Obstetrics History GPAL:G 0 P 0 0 0 0 Type Value Multiple Births 0 Full Term 0 Induced 0 Spontaneous 0 Premature 0 Living 0 Ectopics 0 Total 0 Immunizations Vaccine Type Date Status Note Provider Nam e and Address Organization Details Recorded Time COVID-19, mRNA, LNP-S, PF, 30 mcg/0.3 mL dose 1 completed Carlyn Cervantes [place] null, [place] [facility] 03/15/2024 14:36:22 COVID-19, mRNA, LNP-S, PF, 30 mcg/0.3 mL dose 1 completed Carlyn Cerv[place] [facility] 03/15/2024 14:36:22 COVID-19, mRNA, LNP-S, PF, 30 mcg/0.3 mL dose 2 completed Carlyn Cervantes [place], [place] [facility] 03/15/2024 14:36:22 Hep A, pediatric, unspecified formulation 1 completed Not Available [facility] 07/24/2022 12:46:44 Influenza, split virus, quadrivalent, PF 8 completed Not Available [facility] 07/24/2022 12:46:44 COVID-19, mRNA, LNP-S, PF, 30 mcg/0.3 mL dose 2 completed RADHA [place]ccabe, [place] [facility] 03/15/2024 14:36:22 Meningococcal MCV4O 7 completed RADHA [place] [facility] 03/15/2024 14:36:23 Influenza, live, quadrivalent, intranasal 4 completed RADHA [place] [facility] 03/15/2024 14:36:23 meningococcal B, OMV 8 completed Not Available [facility] 02/25/2019 02:40:57 HPV9 8 completed Not Available [facility] 02/25/2019 02:41:58 Hep B, adolescent or pediatric 1 completed Not Available [facility] 07/24/2022 12:46:43 varicella 2 completed Not Available [facility] 07/24/2022 12:46:43 Hep A, ped/adol, 2 dose 6 completed Not Available [facility] 07/24/2022 12:46:43 DTaP 2 completed Not Available [facility] 07/24/2022 12:46:44 IPV 1 completed Not Available [facility] 07/24/2022 12:46:43 varicella 1 completed Not Available [facility] 07/24/2022 12:46:43 DTaP 1 completed Not Available [facility] 07/24/2022 12:46:44 IPV 1 completed Not Available [facility] 07/24/2022 12:46:43 DTaP 1 completed Not Available [facility] 07/24/2022 12:46:44 Tdap 1 completed Not Available [facility] 07/24/2022 12:46:43 pneumococcal conjugate PCV 7 1 completed Not Available [facility] 07/24/2022 12:46:43 MMR 2 completed Not Available [facility] 07/24/2022 12:46:43 Hib, unspecified formulation 2 completed Not Available [facility] 07/24/2022 12:46:43 DTaP 4 completed Not Available [facility] 07/24/2022 12:46:44 Hep B, adolescent or pediatric 1 completed Not Available [facility] 07/24/2022 12:46:43 influenza nasal, unspecified formulation 4 completed RADHA [place]ccabe, [place] [facility] 03/15/2024 14:36:23 MMR 6 completed Not Available [facility] 07/24/2022 12:46:43 meningococcal MCV4, unspecified formulation 2 completed Not Available [facility] 07/24/2022 12:46:44 IPV 5 completed Not Available [facility] 07/24/2022 12:46:43 Hep A, ped/adol, 2 dose 1 completed Not Available [facility] 07/24/2022 12:46:43 Hib, unspecified formulation 1 completed Not Available [facility] 07/24/2022 12:46:43 IPV 4 completed Not Available [facility] 07/24/2022 12:46:43 Hep B, adolescent or pediatric 1 completed Not Available [facility] 07/24/2022 12:46:43 Hib, unspecified formulation 1 completed Not Available [facility] 07/24/2022 12:46:43 Influenza, live, quadrivalent, intranasal 5 completed Not Available [facility] 02/25/2019 02:43:38 Tdap 5 completed RADHA Mccabe, [place] - [facility] 03/15/2024 16:01:12 Past Encounters Encounter ID Performer Location Encounter Start Date Encounter Closed Date Diagnosis/Indication Diagnosis SNOMED-CT Code Diagnosis ICD10 Code Diagnosis Note [id number] [facility] (Peds) [address] [place] [address] 11/19/2014 16:12:48 11/19/2014 17:24:47 Well child 449022359 Z00.121 discussed routine adolescent care discussed safety and school performanc e Morbid obesity 147562945 E66.01 weight reduction with diet and exercise. Obtain records fro [facility] to review labs. Discussed cutting calories and how. increasing exercise to 1 hour qod. Active or passive immunization 458811831 Z23 [id number] ARUNA Quispe- Jessica Womenjazmin ([facility] [address]) [address] [facility] [place] [address] 07/16/2015 09:33:59 07/16/2015 10:50:59 Contraception care 272949527 Z30.40 Venereal d isease screening 307650512 Z11.3 [id number] Carmen Dubon [facility] ([facility] 122) [address] [facility] [place] [address] 08/29/2015 11:36:18 08/29/2015 13:35:52 Irregular periods 69768338 N92.6 [id number] Chhaya Dye [facility] (Peds) [address] [place] [address] 12/06/2015 11:16:15 12/06/2015 17:02:59 Simple obesity 513438686 E66.01 discuss about low fat diet and exercise 1/2 - 1 hr/d, sleep 10 hr, good hand hygiene, no biting fingernail s, no weight gain, drink more water 4-6 cup/d, milk 2 cups/d, 5-2-1-0 message discussed Hypothyroidism 32826062 E03.9 Streptococ yaw tonsillitis 91660333 J03.01 test pos, good hands hygiene, pt refused flushot, mom wanted her to get one. [id number] Vicky Alberto [facility] ([place] [id number]) [address] [facility] [place] [address] 03/10/2016 14:38:43 03/10/2016 16:01:47 Hypothyroidism 79909738 E03.9 Contracept ion care management 813418877 Z30.9 [id number] [facility] [address] [place] [address] 06/01/2016 13:49:29 06/03/2016 10:46:15 Streptococcal sore throat 43877924 J02.0 no sharing food or drink. switch out toothbrush Morbid obesity 413253650 E66.01 weight reduction with diet and exercise. Discussed cutting calories and how. increasing exercise to 1 hour qod. Active or passive immunization 212976610 Z23 [id number] [facility] [address] [place] [address] 11/06/2016 11:40:50 11/10/2016 11:05:24 Sore throat 571632271 J02.9 Acute tonsillitis 905163 08 J03.90 [id number] [facility] ([place] [address]) [address] [facility] [place] [address] 02/11/2017 16:16:44 02/15/2017 09:44:53 Contraception care management 531002283 Z30.9 Morbid obesity 521990409 E66.01 [id number] Vicky [facility]to [facility] ([facility] 122) 2 [facility] [place] [address] 03/19/2017 16:44:29 03/25/2017 11:07:07 Venereal disease screening 043187760 Z11.3 Vaginal discharge 957036 006 N89.8 At [facility] risk of urinary tract infection 422989208 Z91.89 [id number] [facility] [address] [address] 09/23/2017 10:15:07 09/27/2017 12:51:00 Well child 942940554 Z00.121 discussed routine adolescent care discussed safety and school performanc e Morbid obesity 557023422 E66.01 weight reduction with diet and exercise. Discussed cutting calories and how. increasing exercise to 1 hour qod. pt scheduled for gastric sleeve surgery. [id number] [facility] [address] [place] [address] 01/24/2018 16:02:26 01/26/2018 16:52:33 Obesity 388139296 E66.9 scheduled for gastric sleeve in feb. Viral gastroenteritis 11 6818770 A08.4 Discussed sipping small amounts of fluid frequently , rest, BRAT diet, etc [id number] [facility] [address] [place] [address] 07/13/2018 11:39:54 07/15/2018 12:19:11 Acute sinusitis 52082924 J01.90 Hypothyroidism 17141131 E03.9 Obesity 480045462 E66.9 pt had gastric sleeve procedure done. has lost significan t weight since. [id number] Immanuel Cervantes MD [place] 14 OB [address] [facility] [place] [address] 09/22/2018 09:24:09 09/23/2018 14:33:07 Contraception care management 981369689 Z30.9 1. Reviewed all forms of control with patient including risk factors and side effects. 2. Counseled on STD transmissi on and prevention , condom use and prevention . 3. Pt would like to continue with OCP. Educated on correct use and side effects. Will send rx to pharmacy. 4. Follow up for med check in 12 months, sooner if needed. [id number] [facility] 4 [facility] [address] [place] [address], [place] [address] 01/04/2019 11:28:18 01/04/2019 15:27:54 Elective termination of 88140895 Z33.2 will obtain u/s and fax to [facility]. Contracept ion care management 963951873 Z30.9 Patient here for control discussion . All forms of control reviewed with patient including risks, benefits, pros and cons. Patient verbalized understand ing of all forms and that abstinence is the only true form of control. Condom use reviewed as well and prevention of STD's. Patient would like us to order IUD. Device reviewed with patient and pamphlet given. Will call when device arrives to schedule appt or when pt is on cycle. [id number] MD Jessica Alfonso 14 IM [address] [facility] [place] [address] 01/23/2019 09:33:41 01/24/2019 14:29:51 Mixed anxiety and depressive disorder 659511305 F41.8 Empiricall y try fluoxetine 20mg daily, Aware of SEs. Hypothyroidism 35100816 E03.9 Currently on LT 50mcg, Ct the same and check labs in 2 months,. History of sleeve gastrectomy 4715934216 15377 Z90.3 In Mar 2018, On famotidine , promethazi ne, MVT and Vit d3 per the specialist , now on annual visit.Lost about 100lbs sine the surgery. Long-term drug therapy 900076805 Z79.899 Baseline labs [id number] Omayra Samuel Novak ([employer]UDIT CLERK) [address] [place] [address] 05/11/2019 09:10:13 05/16/2019 07:51:42 Contraception care management 967090084 Z30.9 control options discussed. Pt. wants the Mirena IUD. Benefits, risks, and alternativ es to Mirena IUD insertion d/w pt. Pt. expressed understand ing. All pt. questions answered. However, we are no doing non-essent ial in-office visits due to the COVID-19 pandemic. Pt. offered option of taking OCPs until the pandemic is over and then getting the IUD. Pt. expressed understand ing and will use OCPs Rx sent. [id number] MD Jessica Alfonso 14 IM 4 [facility] [address] [place] [address] 06/12/2019 09:59:39 06/13/2019 09:42:50 Mixed anxiety and depressive disorder 656624756 F41.8 Empiricall y try fluoxetine 20mg daily, Aware of SEs.06/12/19 Had issue with the medication , stopped about a month ago, prefer a different one.Try lexapro 10mg daily, Aware of SEs Hypothyroidism 33834645 E03.9 Currently on LT 50mcg, Ct the same and check labs in 3 months,. History of sleeve gastrectomy 5062144970 30221 Z90.3 In Mar 2018, On famotidine , promethazi ne, MVT and Vit d3 per the specialist , now on annual visit.Lost about 100lbs sine the surgery.On OTC omeprazole too, Long-term drug therapy 295804019 Z79.899 Baseline labs [id number] MD Jessica Alfonso 14 IM 4 [facility] [address] [place] [address] 06/27/2019 14:13:55 06/28/2019 07:59:42 Acute gastroenteritis 34590393 K52.9 R/O AGE was colitis.Hy drate well. Eat easily digestible mealif getting worse go to [facility] to back to work by 5/21/20 to be given by the MA. [id number] Mae Arnold PA-C [facility] [address] [place] [address] 04/14/2021 13:58:17 04/14/2021 14:49:12 Mixed anxiety and depressive disorder 137451060 F41.8 Hypothyroidism 54966085 E00.1 Iron defic iency anemia 91672606 D50.9 Body mass index 30+ - obesity 226788635 Z68.34 [id number] Mae Arnold PA-C [facility] [address] [place] [address] 04/21/2021 15:16:38 04/21/2021 17:01:47 History of sleeve gastrectomy 3776882176 14269 Z90.3 Mixed anxi ety and depressive disorder 879351540 F41.8 Acquired hypothyroidism 673847851 E03.9 [id number] Mae Arnold PA-C [facility] [address] [place] [address] 08/06/2021 15:16:40 08/07/2021 09:25:48 Iron deficiency anemia 64658534 D50.9 Unintentio nal weight gain 3189982853 92654 R63.5 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 488610064 E06.3 Chronic depression 45661 0009 F34.1 [id number] Mae Arnold PA-C [facility] [address] [place] [address] 08/18/2021 16:23:50 08/18/2021 16:50:28 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 804455348 E06.3 Overweight 294765590 E66 .3 [id number] Mae Arnold PA-C [facility] [address] [place] [address] 12/01/2021 10:54:28 12/02/2021 12:27:31 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 354790193 E06.3 Mixed anxi ety and depressive disorder 506325906 F41.8 Chronic depression 83667 0009 F34.1 [id number] MD Ivan VÁSQUEZ ([employer] AUDIT CLERK) [address] [place] [address] 03/26/2022 10:14:52 03/31/2022 12:13:25 Acute upper respiratory infection 64133595 J06.9 - Discussed supportive care at home with emphasis on maintainin g adequate hydration - Provided anticipato ry guidance for when to call office and/or seek emergency treatment - f/u COVID and flu swab - Follow up as needed Body mass index 30+ - obesity 669424829 Z68.37 - Discussed healthy behaviors, including eating a balanced diet and increasing fruit and vegetable intake while sick [id number] Areli Otoole MA [facility] [address] [place] [address] 11/09/2022 14:21:12 11/10/2022 15:26:30 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 878809601 E06.3 Mixed anxi ety and depressive disorder 679122358 F41.8 Overweight 478998414 E66 .3 [id number] Mae Arnold PA-C [facility] [address] [place] [address] 04/27/2023 17:30:16 04/30/2023 11:58:18 Mixed anxiety and depressive disorder 009823983 F41.8 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 375555774 E06.3 [id number] aMe Arnold PA-C [facility] [address] [place] [address] 03/15/2024 14:26:21 03/17/2024 11:50:28 Active or passive immunization 696508406 Z23 Tuberculos is screening 499715169 Z11.1 Overweight 815039261 E66 .3 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 707836067 E06.3 Family his tory of diabetes mellitus 322567313 Z83.3 Adult heal th examination 117092065 Z00.00 Health Concerns Section Related Observation LastModified by Organization Abimael lópez LastModified Time None Recorded Concern Status LastModified by Organization Details LastModified Time None Recorded Advance Directives Directive None Recorded Payers Encounter Date Sequence Insurance Name Policy Number Policy Huang Covered Member ID Huang Member ID Guarantor Name 12/01/2021 1 [facility] - DOS ON OR AFTER 20 (MEDICAID REPLACEMENT - HMO) Letitia Valverde [id number] Letitia Cvik 03/26/2022 1 [facility] - DOS ON OR AFTER 20 (MEDICAID REPLACEMENT - HMO) Letitia Valverde [id number] Letitia Cvik 11/09/2022 1 [facility] - DOS ON OR AFTER 20 (MEDICAID REPLACEMENT - HMO) Letitia Valverde [id number] Letitia Cvik 04/27/[address] [facility] [id number] Olman Cvik [id number] Letitia Cvik 03/15/[address] [facility] [id number] Olman Cvik [id number] Letitia Zambranoik Notes Date Note Type Note Provider Name and Address Organization Details Recorded Time 12/01/2021 text/html thyroid check... has seen some improvement in symptoms...anxiety and depression are not much better...has shaking hands as well...just recently lost her father.. 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 Mae Arnold PA-C Attn: [address] [facility], [place], [address], [facility] 04/27/2023 17:58:56 03/15/2024 text/html school phys..nee ds TB and Tuberculosis screen..also wants thyroid checked.. Mae Arnold PA-C Attn: [address] [facility], [place], [address], [facility] 03/15/2024 15:09:16 OBGyn Episode No OBEpisode recorded.
[2024-03-18 08:16] VITALS: BP 119/67; PULSE 88; RESP 16; TEMP 37.2; O2SAT 100
--- NOTE | 2024-03-18 08:21 | ED.ABDPAIN ---
HPI - Abdominal Pain General Chief Complaint: Abdominal Pain Stated Complaint: epigastric pain, flu symptoms Source: patient Mode of arrival: ambulatory Limitations: no limitations History of Present Illness HPI narrative: Pt presents for evaluation of epigastric pain. Symptom onset yesterday. Pain is intermittent, stabbing and radiates into her back. She has experienced nausea without vomiting. No change in bowel pattern. She reports hot flashes and a burning sensation in her throat. She woke from sleep last night with a cough, which kept her up. She took sudafed and her cough improved. She denies any urinary symptoms. Surgical history positive for cholecystectomy and gastric sleeve. She follows a fairly healthy diet. She does not consume alcohol, smoke or use any illicit drugs. She states she had similar symptoms in the past when she had problems with her gallbladder. 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 Related Data Home Medications ?Medication ?Instructions ?Recorded ?Confirmed ?Last Taken ?Type hydroxyzine HCl 25 mg tablet mg 03/18/24 Unknown History levothyroxine 50 mcg tablet mcg 03/18/24 Unknown History Allergies Allergy/AdvReac Type Severity Reaction Status Date / Time fluoxetine (From [employer]) Allergy Severe Hives Verified 07/24/22 10:59 Review of Systems Review of Systems: CONSTITUTIONAL: Denies fever, chills, or sweats. EYES: Denies visual changes, redness, or discharge. ENT: Reports burning sensation in the throat. Denies rhinorrhea, congestion, or otalgia. CARDIOVASCULAR: Denies chest pain, palpitations, or edema. RESPIRATORY: Reports cough. Denies dyspnea. GASTROINTESTINAL: Reports abdominal pain and nausea. Denies vomiting or diarrhea. GENITOURINARY: Denies dysuria or hematuria. SKIN: Denies rash or itching. MUSCULOSKELETAL: Reports back pain, which seems to originate from the abdomen. Denies joint pain, or myalgia. NEUROLOGIC: Denies headache, numbness, dizziness, or weakness. PSYCHIATRIC: Denies anxiety or depression. [facility] Past Medical History Medical History Encounter for IUD insertion 05/2020 History of gastrectomy Hypothyroidism Anxiety Depression Surgical History Surgical History History of gastric surgery History of cholecystectomy History of tonsillectomy Family History Family History Father Alive and well Mother Alive and well Social History Social History Smoking status: Never smoker Second hand tobacco smoke exposure: No Alcohol intake: never Substance use: never Living arrangements: with family Occupation/Education: occupation Gender identity (if verbalized by the patient): Female Sexual Orientation (if Verbalized by the Patient): Straight or Heterosexual Exam Narrative: GENERAL: Well-appearing, well-nourished, and in no acute distress. HEAD: Normocephalic, atraumatic. EYES: PERRLA and EOMI. ENT: Nares clear, no rhinorrhea or epistaxis. Mucous membranes moist. Oropharynx without tonsillar hypertrophy exudate or other lesions. Bilateral TMs pearly michel nonbulging NECK: Supple. No adenopathy or masses. No carotid bruits or JVD CHEST: Clear to auscultation. No respiratory distress. No wheezes rales or rhonchi HEART: Regular rate and rhythm. No murmur heard. Normal peripheral pulses. ABDOMEN: Soft, nondistended, normal active bowel sounds. There is epigastric tenderness without rebound or guarding EXTREMITIES: Normal range of motion. No edema. SKIN: Warm, dry, no rash. NEURO: No focal deficits. Alert and oriented x3. PSYCH: Normal mood and affect. Course Course Emergency Course: This is a 24-year-old female who presented for evaluation of epigastric pain and burning sensation in her throat. COVID, flu, strep were all negative. Her exam seems consistent with GERD. I did offer to send her to the emergency department for labs and potential imaging. She declined. She would prefer to try an antacid at home this a for symptoms improved. Will discharge with Pepcid. Increase hydration. [id number] agents for symptom management. Follow up with primary provider. Go to the ER for worsening symptoms. Patient in agreement with plan of care. Level of Care: Express Care Visit Vital Signs Vital signs: Vital Signs Temperature 37.2 C 03/18/24 08:16 Pulse Rate 88 03/18/24 08:16 Respiratory Rate 16 03/18/24 08:16 Blood Pressure 119/67 03/18/24 08:16 Pulse Oximetry 100 03/18/24 08:16 Oxygen Delivery Room Air 03/18/24 08:16 Temperature 37.2 C 03/18/24 08:16 Pulse Rate 88 03/18/24 08:16 Respiratory Rate 16 03/18/24 08:16 Blood Pressure 119/67 03/18/24 08:16 Pulse Oximetry 100 03/18/24 08:16 Oxygen Delivery Room Air 03/18/24 08:16 MDM - Abdominal Pain Lab Data Labs: Lab Results 03/18/24 Range/Units 08:44 POC Influenza A Ag Negative (Negative) POC Influenza B Ag Negative (Negative) POC SARS CoV-2 Ag Negative (Negative) POC Grp A Strep Screen Negative (Negative) Discharge Plan Discharge Clinical Impression: Acute epigastric pain Patient Disposition: Home, Self-Care Condition: Stable Instructions: Antibiotic Form, Abdominal Pain (ED) Additional Instructions: If you have persistent or worsening symptoms, please go to the ER Please follow a bland diet Patient Language: Croatian Prescriptions: New famotidine [Pepcid] 20 mg tablet 20 mg PO BID Qty: 20 0RF No Action levothyroxine 50 mcg tablet hydroxyzine HCl 25 mg tablet Follow-up/Referrals: Clayton,ARSH Ledbetter [Primary Care Provider] - Time of Disposition: 08:48
[2024-03-18 08:46] LABS: EDCOVIDSCREEN Negative (Negative); EDINFLUASCREEN Negative (Negative); EDINFLUBSCREEN Negative (Negative); EDSTREPNEGPOS1 Negative (Negative)
== END 2024-03-18 08:55 | disposition home or self-care (01) ==
PROVIDERS: Emergency Provider Nurse Practitioner; PCP Physician Assistant
DX: R10.13 Epigastric pain (principal); Z20.822 Contact with and (suspected) exposure to COVID-19; E03.9 Hypothyroidism, unspecified; Z98.84 Bariatric surgery status
CPT/HCPCS: 87081; 87426; 87804; 87880; 99213; G0463